=== PATIENT | female | born 1980 | race Caucasian/White ===

== ENCOUNTER 2022-08-05 10:03 | Outpatient (CLI) | payer MEDICAID, SELFPAY | END 2022-08-05 10:04 | disposition home or self-care (01) | PROVIDERS: PCP Family Medicine; Visit Provider Family Medicine | DX: L29.9 Pruritus, unspecified (principal); E78.5 Hyperlipidemia, unspecified | CPT/HCPCS: 80048; 82607; 84443; 85025; 86140 ==

== ENCOUNTER 2022-08-16 13:32 | Outpatient (CLI) | payer BC, SELFPAY ==
--- NOTE | 2022-08-16 13:45 | CRLHL7_ITS ---
For Patients: As a result of the Century Cures Act, medical imaging exams and procedure reports are released immediately into your electronic medical record. You may view this report before your referring provider. If you have questions, please contact your health care provider. Indication: Neck pain with right arm radiation. Technique: T2, T1 and STIR sagittal as well as gradient echo axial sequences were obtained. No IV contrast. Comparison: Cervical CT from [facility] dated 03/09/2017. Preoperative cervical MRI from [facility] dated 04/28/2015. Findings: Interbody fusion from C4-C7 where an anterior plate and screw device remains in place. There is also posterior element fixation hardware at the operated levels. Solid interbody bony bridging is present from C4-C7. The appearance of the surgical construct is unchanged from 03/09/2017. There is trace degenerative anterolisthesis at C7-T1, new from the 2018 CT. The overall degree of cervical lordosis remains within normal limits. No fracture or worrisome bone lesion identified. No high grade central canal stenosis. No spinal cord signal abnormalities are identified. The visualized spinal cord is normal in morphology, signal intensity, and position within the spinal canal. No gross paraspinal pathology is identified. Craniocervical junction and C1-C2: Unremarkable, with a patent foramen magnum. No change from 03/09/2017. C2-3: Moderate facet degenerative changes, progressed from 03/09/2017. Mild narrowing of the right foramen. C3-4: Moderate disc degeneration. Mild facet osteoarthritis. Mild interval disease progression. The foramina remain patent. C4-5 through C6-7: Intersegmental fusion, stable from 03/09/2017. The foramina remain patent. C7-T1: Moderately severe right and moderate left facet osteoarthritis. Slight degenerative anterolisthesis. Moderate disc degeneration. Moderate progression from 03/09/2017. The foramina remain patent. Impression: 1. At C7-T1 there is bilateral facet osteoarthritis, more pronounced and moderately severe on the right, with slight degenerative anterolisthesis. This has progressed from 03/09/2017. 2. At C3-4 there is moderate disc degeneration and mild facet osteoarthritis, mildly progressed. 3. Surgical fusion from C4-C7, appearance unchanged. 4. No central canal stenosis. No high-grade foraminal encroachment. No disc herniations are identified. Dictated by Augie Lott MD @ 08/18/2022 8:30:20 AM (Electronically Signed)
== END 2022-08-16 13:33 | disposition home or self-care (01) ==
LOC: MRI 13:33
PROVIDERS: PCP Family Medicine; Visit Provider Family Medicine
DX: M54.2 Cervicalgia (principal); M54.12 Radiculopathy, cervical region; M47.893 Other spondylosis, cervicothoracic region; M50.31 Other cervical disc degeneration, high cervical region
CPT/HCPCS: 72141

== ENCOUNTER 2022-10-18 16:01 | Outpatient (CLI) | payer BC, SELFPAY ==
--- NOTE | 2022-10-18 16:00 | CRLHL7_ITS ---
For Patients: As a result of the Century Cures Act, medical imaging exams and procedure reports are released immediately into your electronic medical record. You may view this report before your referring provider. If you have questions, please contact your health care provider. INDICATION: Chronic sinusitis. TECHNIQUE: High-resolution CT images were acquired through the paranasal sinuses multiplanar reconstructions. FINDINGS: Postoperative changes consists of bilateral maxillary antrostomies, uncinectomies and partial middle turbinectomies. Maxillary sinuses: On the left side there is a 14 mm x 9 mm retention cyst along the medial maxillary sinus wall there is a 3 mm or less mucosal thickening at the base of the antrum wide patency of the maxillary antrostomy. On the right side there is 5 mm or less mucosal thickening along the medial wall of the maxillary sinus antrostomy is patent. Ethmoid: Bilateral ethmoid air cells are clear. Frontal: A frontal air cells are a plastic. A remnant of the left inferior frontal recess is noted. Sphenoid: This there is a 3 mm or less mucosal thickening in the dominant right sphenoid air cell the sphenoethmoidal recesses are patent. Nasal fossa: Nasal septum is near midline. The posterior nasal fossa and the nasopharynx are unremarkable. IMPRESSION: 1. Postoperative changes with patent bilateral maxillary antrostomies. 2. Retention cyst at the medial wall of the left maxillary antrum and mild mucosal thickening at the base of the bilateral maxillary sinuses. 3. Clear ethmoid air cells. Aplastic frontal air cell. 4. Moderate mucosal thickening in the dominant right sphenoid air cell. Please note that all CT scans at this facility use dose modulation, iterative reconstruction, and/or weight-based dosing when appropriate to reduce radiation dose to as low as reasonably achievable. Dictated by Javi Girard MD @ 10/19/2022 9:24:25 AM (Electronically Signed)
== END 2022-10-18 16:02 | disposition home or self-care (01) ==
LOC: CT 16:02
PROVIDERS: PCP Family Medicine; Visit Provider Otolaryngology
DX: J32.9 Chronic sinusitis, unspecified (principal); J34.1 Cyst and mucocele of nose and nasal sinus; J32.0 Chronic maxillary sinusitis
CPT/HCPCS: 70486

== ENCOUNTER 2022-11-15 21:00 | Outpatient (CLI) | payer BC, SELFPAY ==
--- NOTE | 2022-11-23 12:06 | W.PM.SLEEP ---
Sleep Study Details Details Interpreting Provider: Coy Date of Sleep Study: 11/15/22 Sleep Study Details: STUDY TYPE:? Hospital-based ? BMI:? 27.5 ORDERING PROVIDER:Johnny Temple INDICATION:? Concerns about sleep apnea ? SLEEP SUMMARY:? Total sleep time 404.5 minutes, arousal index 11 RESPIRATORY SUMMARY:? Mean oxygen awake 97 asleep 95 minimum 89 AHI 12.3, RDI 16 Supine AHI 17.9, supine REM AHI 4.86 Nonsupine AHI is 7 nonsupine RDI 10.2 PERIODIC LIMB MOVEMENTS OF SLEEP:? None CARDIAC:? Awake 64, asleep 62. No arrhythmias noted IMPRESSION:? Mild to moderate obstructive sleep apnea with an AHI of 12.3 and an RDI of 16. There is definite supine position dependency but no REM dependency RECOMMENDATION: Treatment options include AutoSet CPAP pressure 4-17, dental appliance and/or airway expansion surgery.
== END 2022-11-15 21:01 | disposition home or self-care (01) ==
LOC: SLEEP 21:00
PROVIDERS: PCP Family Medicine; Visit Provider Otolaryngology
DX: G47.33 Obstructive sleep apnea (adult) (pediatric) (principal)
CPT/HCPCS: 95810

== ENCOUNTER 2022-12-17 10:18 | Day surgery (SDC) | payer BC, SELFPAY ==
[2022-12-17] VITALS (15 sets, daily range): BP systolic 122–148; BP diastolic 73–100; PULSE 70–95; RESP 14–16; TEMP 36.4–36.9; O2SAT 93–98; BMI 27.5
[2022-12-17] MEDS: LACTATED RINGERS 1000 ML 1,000 ML 100 ML IV (10:25)
[2022-12-17] MEDS: OXYMETAZOLINE 0.05% NASAL SPRAY 2 SPRAY NOSTRIL-B (10:36)
[2022-12-17 10:48] LABS: Ur HCG Qualitative* Negative (Negative)
[2022-12-17] MEDS: SODIUM CHLORIDE 0.9 % (FLUSH) 10 ML SYRINGE IVF (11:07)
[2022-12-17] MEDS: COCAINE HCL 4 % 4 ML SOLUTION NOSTRIL-B (12:08)
[2022-12-17] MEDS: BUPIVACAINE 0.5 %/EPI 1:200K 30 ML INJECTION (12:10)
[2022-12-17] MEDS: AYR SALINE NASAL GEL 1 APPLIC NOSTRIL-B (12:15)
[2022-12-17] MEDS: MUPIROCIN 1 GM PACKET 1 APPLIC TOPICAL (12:18)
--- NOTE | 2022-12-17 12:30 | P.ENTPROC_ITS ---
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 Postoperative diagnosis same Procedure endoscopic bilateral maxillary antrostomies with tissue removal, endoscopic right anterior ethmoidectomy, very conservative anterior submucous resection inferior turbinates Noted each image guidance was utilized and registration was 1.6 mm. After general endotracheal anesthesia was induced and the patient prepped and draped in usual fashion. The nose was decongested with cocaine pledgets and injected. 0 degree endoscope was used throughout the procedure. They left uncinate process was taken down and this natural opening connected to the pre- existing antrostomy. There was a large cyst in the medial wall the left maxillary sinus that I removed. On the right side the inferior 4th of the uncinate was taken down and the natural os connected to the pre-existing os. Small amount of polypoid tissue was removed from this region. The anterior ethmoid cells were opened and again a small amount of polypoid tissue was removed. Middle turbinate was simply crushed with the Ken forceps. A very conservative anterior submucous resection was performed of the right inferior turbinate. A stab incision was made with a 15 blade and a tunnel created with a [place] dissector. The patti bone was outfractured a Mukesh forceps used to remove a very small amount of tissue. Hemostasis was achieved with Coblation. The not cauterize posteriorly at all because the turbinate was already fairly small. This was repeated on the left side in identical fashion. Dissolvable gel pack as well as a half Merocel pack was placed in the middle meatus on each side. The patient procedure well was taken recovery in satisfactory condition. Blood loss was 25 mL. Surgeon: Chevy Mejia MD
--- NOTE | 2022-12-17 12:43 | W.ANESCHARGE ---
Anesthesia Charges Start Date/Time Anesthesia Start Date: 12/17/22 Anesthesia Start Time: 11:49 Stop Date/Time Anesthesia Stop Date: 12/17/22 Anesthesia Stop Time: 12:39
--- NOTE | 2022-12-17 12:44 | W.ANESCHARGE ---
Anesthesia Charges Start Date/Time Anesthesia Start Date: 12/17/22 Anesthesia Start Time: 11:49 Stop Date/Time Anesthesia Stop Date: 12/17/22 Anesthesia Stop Time: 12:39
[2022-12-17] MEDS: fentaNYL 100 MCG/2 ML inj 50 MCG IVP ×2 (12:50→13:08)
[2022-12-17] MEDS: HYDROmorphone 0.5 mg/0.5 ml inj IVP (12:58)
[2022-12-17] MEDS: IBUPROFEN 200 MG TABLET PO (13:54)
[2022-12-17] MEDS: OXYCODONE 5 MG TABLET PO (14:15)
[2022-12-17] MEDS: ACETAMINOPHEN 325 MG TABLET PO (14:15)
--- NOTE | 2022-12-17 15:12 | SUR.PHASEII ---
PATIENT TEARFUL ONCE HEARING INSURANCE WOULD NOT COVER NARCOTIC PRESCRIPTION BY CELL PHONE CALL TO PATIENT FROM PHARMACY. RN CALLED PHARMACY TO ASK WHAT SHE CAN DO FOR PAIN POST-OP. RN CALLED DR. JANE FOR OTHER OPTIONS. RN CALLED PHARMACY AGAIN TO TRY OTHER MEDICATION OPTIONS FROM DR. JANE WITH NO RESULTS. DR. JANE ORDERED PATIENT TO CONTINUE HER ROUTINE PRESCRIPTION OF SUBOXONE AND IBUPROFEN FOR PAIN RELIEF POST-OP. PATIENT VERBALIZED UNDERSTANDING POST-OP INSTRUCTIONS, PATIENT VERBALIZED READINESS TO BE DISCHARGED. RN DISCHARGED PATIENT, HOME WITH FRIEND.
== END 2022-12-17 15:15 | disposition home or self-care (01) ==
LOC: OR 10:19
PROVIDERS: PCP Family Medicine; Visit Provider Otolaryngology
PROC: (CPT 31231; principal; 2022-12-17 11:30)
DX: J32.0 Chronic maxillary sinusitis (principal); J32.2 Chronic ethmoidal sinusitis; J34.3 Hypertrophy of nasal turbinates; R51.9 Headache, unspecified
CPT/HCPCS: 31267; 31254; 30140; 00160; 81025; 88305; 88311; A9270; J0330; J1100; J1170; J2405; J2704; J3010; J3490; J7120

== ENCOUNTER 2023-04-12 08:37 | Outpatient (CLI) | payer BC, SELFPAY | END 2023-04-12 08:38 | disposition home or self-care (01) | LOC: INJ CL 08:38 | PROVIDERS: PCP Family Medicine; Visit Provider Family Medicine | DX: M51.36 Other intervertebral disc degeneration, lumbar region (principal); M54.16 Radiculopathy, lumbar region | CPT/HCPCS: 62323; J0702; Q9966 ==

== ENCOUNTER 2023-05-10 09:01 | Outpatient (CLI) | payer BC, SELFPAY | END 2023-05-10 09:02 | disposition home or self-care (01) | LOC: INJ CL 09:02 | PROVIDERS: PCP Family Medicine; Visit Provider Family Medicine | DX: M51.36 Other intervertebral disc degeneration, lumbar region (principal); M54.16 Radiculopathy, lumbar region | CPT/HCPCS: 64483; J1100; Q9966 ==

== ENCOUNTER 2023-06-27 12:42 | Outpatient (CLI) | payer BC, SELFPAY ==
--- OUTSIDE RECORDS SUMMARY | 2023-06-27 12:45 | XMS_ITS | Referral Summary ---
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 Last update 07/12/08.[employer] Encounters Date Type Department Care Team Description 06/07/2023 Travel 05/10/2023 Travel 04/12/2023 Travel from Last 3 Months Allergies Active Allergy Reactions Criticality Noted Date Comments Amoxicillin Rash 10/06/2022 Eszopiclone Other (see comments) 10/06/2022 Levofloxacin Unknown 10/06/2022 Quetiapine Other (see comments) 10/06/2022 Medications * Be aware that medications may not be up to date as of this document. Always verify current medications with patient. Medication Sig Dispensed Refills Start Date End Date Status traZODone (DESYREL) 1 split tablet (0.5 x 50 mg) oral TABS Active venlafaxine (EFFEXOR XR) 150 mg oral capsule 24 H Take 1 capsule (150 mg) by mouth daily. 08/17/2022 Active tiZANidine (ZANAFLEX) 4 mg oral TABS Active pantoprazole (PROTONIX) 40 mg oral tablet Active lamoTRIgine (LAMICTAL) 200 mg oral tablet Active GABApentin (NEURONTIN) 300 mg oral capsule Take 3 capsules (900 mg) by mouth 3 times daily. 10/01/2022 Active clonazePAM (KLONOPIN) 0.5 mg oral TABS Take 1 tablet (0.5 mg) by mouth daily as needed. 09/20/2022 Active busPIRone (BUSPAR) 10 mg oral tablet Take 2 tablets (20 mg) by mouth 3 times daily. 10/04/2022 Active albuterol (VENTOLIN HFA;PROVENTIL HFA;PROAIR) 108 (90 BASE) mcg/act inhalation inhaler SMARTSI Puff(s) By Mouth Every 4-6 Hours PRN 04/17/2022 Active PREVIDENT 5000 SENSITIVE 1.1-5 % dental gel SMARTSIG:By Mouth 03/28/2023 Active etonogestrel-eth inyl estradiol (NUVARING) 0.12-0.015 MG/24HR vaginal ring SMARTSIG:Vagi nal 01/12/2023 Active famotidine (PEPCID) 40 mg oral TABS Take 1 tablet (40 mg) by mouth daily. 04/16/2023 Active buprenorphine-na loxone (SUBOXONE) 2-0.5 mg sublingual sublingual tabletIndication s:Opioid dependence in remission (CMS/HHS),Chroni c pain syndrome Dissolve 1 tablet under tongue daily as needed (severe chronic pain flare). 20 tablet 06/07/2023 4 Active buprenorphine-na loxone (SUBOXONE) 2-0.5 mg sublingual sublingual tabletIndication s:Opioid dependence in remission (CMS/HHS),Chroni c pain syndrome Dissolve 1 tablet under tongue daily as needed (severe chronic pain flare). 8 tablet 05/24/2023 4 Discontinued(Reor morenita) guanFACINE (TENEX) 1 mg oral TABSIndications: Chronic pain syndrome,PRIMO (generalized anxiety disorder) Take 0.5-1 tablets (0.5-1 mg) by mouth daily as needed (anxiety and pain flare). 6 tablet 05/24/2023 4 Discontinued buprenorphine-na loxone (SUBOXONE) 2-0.5 mg sublingual sublingual tabletIndication s:Opioid dependence in remission (CMS/HHS),Chroni c pain syndrome Dissolve 1 tablet under tongue daily as needed (severe chronic pain flare). 5 tablet 06/02/2023 4 Discontinued(Reor morenita) Hospital, Clinic, or Other Facility Administered Medication Ordered Dose Route Frequency Start Date End Date Status buprenorphine ER (SUBLOCADE) 100 mg/0.5 mL injection 100 mgIndications:Opioid dependence in remission (CMS/HHS) 100 mg subcutaneous ONE TIME 06/07/2023 06/07/2023 End ed Active Problems Problem Noted Date Diagnosed Date Anxiety disorder 02/22/2020 Opioid use disorder 02/22/2020 Overview: correction remission with buprenorphine Social History Tobacco Use Types Packs/Day Years Used Date Smoking Tobacco: Every Day Cigarettes Smokeless Tobacco: Never Tobacco Cessation:Ready to Q uit: Not Asked; Counseling Given: Not Answered Sex and Gender Information Value Date Recorded Sex Assigned at Female 02/22/2020 2:11 PM [employer] Gender Identity Female 02/22/2020 2:11 PM [employer] Sexual Orientation Not on file Last Filed Vital Signs Vital Sign Reading Time Taken Comments Blood Pressure - - Pulse 95 06/07/2023 3:48 PM CDT Temperature - - Respiratory Rate 18 06/07/2023 3:48 PM CDT Oxygen Saturation 95% 06/07/2023 3:48 PM CDT Inhaled Oxygen Concentration - - Weight - - Height - - Body Mass Index - - Plan of Treatment Not on file Procedures Procedure Name Priority Date/Time Associated Diagnosis Comments LAB PAIN CLINIC URINE DRUG SCREEN Routine 06/07/2023 4:50 PM CDT Opioid dependence in remission ([facility]) LAB PAIN CLINIC URINE DRUG SCREEN Routine 05/10/2023 5:09 PM CDT Opioid dependence in remission ([facility]) LAB PAIN CLINIC URINE DRUG SCREEN Routine 04/12/2023 3:00 PM [employer] Opioid dependence in remission ([facility]) PAP TEST Routine 06/18/2021 11:10 AM CDT PANEL LIPID Routine 05/23/2017 3:10 PM CDT from Last 3 Months or Most Recently Relevant to Health Maintenance Results * (ABNORMAL) PAIN CLINIC URINE DRUG SCREEN (06/07/2023 4:50 PM CDT) Only the most recent of3 resultswithin the time period is included. Amphetamine Ur NEG <=500 ng/mL [facility] Benzodiazipine NEG <=100 ng/mL [facility] Buprenorphine Ur POS(A) <=5 ng/mL [facility] Carisoprodol, Urine NEG <=100 ng/mL [facility] Cocaine Metab Ur NEG <=300 ng/mL [facility] Ethylglucuronide Urine NEG <=250 ng/mL [facility] Fentanyl, Urine NEG <=4 ng/mL [facility] Methadone Metabolite Urine NEG <=300 ng/mL [facility] Opiate Ur NEG <=300 ng/mL [facility] Oxycodone Ur NEG <=100 ng/mL [facility] THC Ur NEG <=50 ng/mL [facility] Tramadol, Urine NEG <=200 ng/mL [facility] Creat Urine 95 >=20 mg/dL [facility] PH Urine 5.9 5.0 - 7.0 [facility] Specific [place] 1.017 1.003 - 1.030 [facility] Hydrocodone, Ur NEG <=300 ng/mL [facility] Urine 06/07/2023 4:50 PM CDT 06/07/2023 4:50 PM CDT Gerardo Alonzo MD LABORATORY [facility] [address] [id number] from Last 3 Months or Most Recently Relevant to Health Maintenance [facility] S[facility] [address] [place] [address]
--- OUTSIDE RECORDS SUMMARY | 2023-06-27 12:45 | XMS_ITS | Clinical Summary ---
Author Name Unknown Organization [facility] Address [place], [place] [address] Care Team Providers Care Personal Care Worker Name Role Phone Ezio Fraga MD Primary Care Provider Allergies Active Allergy Reactions Criticality Noted Date Comments Amoxicillin Rash,Other - Describe In Comment Field Medium 09/27/2014 Eszopiclone Itching,Other - Describe In Comment Field Medium 09/27/2014 Levofloxacin Other - Describe In Comment Field High 09/27/2014 Tendonitis Quetiapine Other - Describe In Comment Field 10/06/2022 Quetiapine Fumarate Other - Describe In Comment Field Medium 09/27/2014 Per Psychiatrist no prescribing. Medications Medication Sig Dispensed Refills Start Date End Date Status sennosides-docusat e, 8.6-50 mg, (SENOKOT S) 8.6-50 mg tabletIndications: Constipation due to opioid therapy Take 2 tablets by mouth 2 times daily. Take this while taking the Dilaudid (or other narcotic pain meds) to avoid constipation 100 tablet 7 Active magnesium 250 mg tab Take 1 tablet by mouth once daily. 0 8 Active medication order composer Tumeric Curcumin 0 8 Active sodium bicarb-sodium chloride (NEILMED SINUS RINSE)Indications: Chronic maxillary sinusitis once daily if needed for Nasal Congestion. Rinse both sides. Follow mixing instructions. Use daily starting the day after surgery. 1 Bottle 8 Active COVID-19 antigen test (Flowflex Covid-19 AG Home Test) kit Use as directed on packaging. 4 Kit 2 Active varenicline (Chantix) 1 mg tabletIndications: Tobacco abuse Take 1 tablet (1 mg) by mouth once daily with a meal. 56 Tablet 1 2 Active fluticasone (50 mcg per actuation) nasal solution (FLONASE)Indicatio ns:Acute recurrent maxillary sinusitis Inhale 1 [place] into both nostrils 2 times daily. 48 g 3 2 Active Additional Information Patient not taking.Reported on 05/05/2023 polyethylene glycoL (Miralax) 17 gram/scoop powder Mix 1 scoop (17 g) in liquid then take by mouth once daily if needed for Constipation. 0 3 Active budesonide (PULMiCORT) 1 mg/2 mL neb suspensionIndicati ons:Chronic maxillary sinusitis,Nasal congestion Put one respule in sinus rinse kit and irrigate twice daily 120 mL 3 Active Additional Information Patient not taking.Reported on 05/05/2023 albuterol HFA (PRO-AIR; VENTOLIN; PROVENTIL) 90 mcg/actuation inhaler INHALE 2 PUFFS BY MOUTH EVERY 4 TO 6 HOURS NEEDED FOR SHORTNESS OF BREATH/WHEEZING 3 Active BIOTIN ORAL Take by mouth. Active cyanocobalamin, vitamin B-12, (VITAMIN B-12 ORAL) Take by mouth. Active buprenorphine-nalo xone, 8 mg-2 mg, (SUBOXONE) (8-2 mg/tablet) sublingual tabletIndications: Neck pain, chronic Patient taking 2-1/2 tablets/day 30 Tablet 3 Active etonogestreL-ethin yl estradioL (NuvaRing) vaginal ringIndications:Us es contraception INSERT 1 RING VAGINALLY AND LEAVE IN PLACE FOR 3 CONSECUTIVE WEEKS THEN REMOVE FOR 1 WEEK. REPEAT WITH NEW RING (DOES NOT ALWAYS SKIP WEEK) 3 Each 2 3 Active busPIRone (BUSPAR) 10 mg tabletIndications: Anxiety disorder, unspecified type Take 2 Tablets (20 mg) by mouth three times daily. 540 Tablet 1 3 Active lamoTRIgine (LAMICTAL) 150 mg tabletIndications: Anxiety disorder, unspecified type,Recurrent major depressive disorder, in partial remission (HC) Take 2 Tablets (300 mg) by mouth at bedtime. 180 Tablet 1 3 Active traZODone (DESYREL) 150 mg tabletIndications: Psychophysiologica l insomnia Take 0.5-1 Tablets (75-150 mg) by mouth at bedtime. 90 Tablet 1 3 Active venlafaxine (EFFEXOR XR) 150 mg Extended-Release capsuleIndications :Anxiety disorder, unspecified type,Recurrent major depressive disorder, in partial remission (HC) Take 1 Capsule (150 mg) by mouth once daily with evening meal. 90 Capsule 1 3 Active famotidine (PEPCID) 40 mg tabletIndications: Gastroesophageal reflux disease without esophagitis TAKE ONE TABLET(40MG) BY MOUTH ONCE DAILY 90 Tablet 2 3 Active clonazePAM (KLONOPIN) 0.5 mg tabletIndications: Anxiety disorder, unspecified type TAKE 1/2 TABLET(0.25MG) BY MOUTH 2 TIMES DAILY IF NEEDED FOR ANXIETY OR AGITATION 30 Tablet 2 4 Active celecoxib (CELEBREX) 200 mg capsuleIndications :DDD (degenerative disc disease), lumbar Take 1 Capsule (200 mg) by mouth two times daily with meals. 60 Capsule 2 4 Active pantoprazole (PROTONIX) 40 mg delayed-release tabletIndications: Chronic reflux esophagitis Take 1 Tablet (40 mg) by mouth once daily. 90 Tablet 4 Active tiZANidine (ZANAFLEX) 4 mg tabletIndications: Cervical stenosis of spinal canal TAKE ONE TABLET (4 MG) BY MOUTH EVERY 6 HOURS IF NEEDED FOR MUSCLE SPASM. 60 Tablet 4 Active gabapentin (NEURONTIN) 300 mg capsuleIndications :Neck pain, chronic TAKE 2 CAPSULES (600 MG) BY MOUTH TWO TIMES DAILY. 360 Capsule 1 4 Active tiZANidine (ZANAFLEX) 4 mg tabletIndications: Cervical stenosis of spinal canal Take 1 Tablet (4 mg) by mouth every 6 hours if needed for Muscle Spasm. 180 Tablet 3 06/03/19 24 Discontinued gabapentin (NEURONTIN) 300 mg capsuleIndications :Neck pain, chronic Take 2 Capsules (600 mg) by mouth two times daily. 360 Capsule 4 06/03/19 24 Discontinued Active Problems Problem Noted Date Diagnosed Date Trigger finger of left thumb 01/03/2023 Abdominal bloating 11/30/2022 Pap smear for cervical cancer screening 06/08/19 Overview: 06/2021 NIL/HPV neg. Plan: Pap and HPV in 5 years. Controlled substance agreement signed 12/02/2020 Overview: Signed 10-29-2021 Kim Beaver MD-[facility] Psychiatry Moderate episode of recurrent major depressive d isorder 07/25/2018 Insomnia, idiopathic 07/25/2018 Pain management contract terminated 10/17/2017 Overview: Patient pain managed with Suboxone outside of this clinic, does require approval for any other controlled drugs due to being on restricted access program Pain disorder associated wit h psychological and physical factors 10/11/2017 Chronic maxillary sinusitis 10/06/2017 Chronic pain syndrome 03/17/2017 Chronic, continuous use of opioids 03/17/2017 Pain medication agreement 03/01/2016 Overview: toxasure 02/23 Chronic pain disorder 02/27/2016 Overview: CSA 07/19/2016 Compliance UA 02/27/2016 Cervical stenosis (uterine cervix) 12/24/2014 Overview: S/P ACDF C4-C7 Dr. Orozco Neck pain 11/26/2014 Constipation due to opioid therapy 11/26/2014 Hyperlipidemia 11/26/2014 Gastroesophageal reflux disease without esophagi tis 11/26/2014 Chronic pain due to trauma 11/26/2014 Mild episode of recurrent major depressive disor morenita 02/18/2014 Neck pain Resolved Problems Problem Noted Date Diagnosed Date Resolved Date Anxiety disorder 10/11/2017 08/01/2020 Chemical dependency 05/10/2017 06/19/19 22 Insomnia 11/26/2014 08/01/2020 Primary insomnia 09/17/2014 10/09/2014 Encounters Date Type Department Care Team Description 06/22/2023 Hospital Encounter [facility] [address] [place] [address] Mario Funes MD 06/02/2023 Refill [facility] [address] [place] [address] Ezio Fraga MD Refill Request (Tizanidine, Gabapentin) 05/30/2023 Medical Messaging [facility] [address] [place] [address] Robby Mayen MD Follow up from last injection 05/10/2023 9:20 AM CDT Office Visit [facility] [address] [place] [address] Robby Mayen MD Procedure (Right L4-5 TFESI) 05/10/2023 Refill [facility] [address] [place] [address] Ezio Fraga MD Refill Request (Pantoprazole) 05/05/2023 2:00 PM CDT Office Visit [facility] [address] [place] [address] Robby Mayen MD Musculoskeletal Problem (Follow-up Epidural Steroid Injection on 04/12/2023/Patient states she doesn't feel the injection has helped at all. /) 05/05/2023 Telephone [facility] [address] [place] [address] Robby Mayen MD Error-please disregard 05/05/2023 Travel 04/12/2023 9:00 AM VIOLIN MAKER HAND Office Visit [facility] [address] [place] [address] Robby Mayen MD Procedure (L3-4 ILESI) 04/12/2023 Orders Only [facility] Scanner 1 scan: (1-Ord) [facility], L4-5 INTERLAMINAR EPIDURAL STEROID INJ UNDER FLUOROSCOPIC GUIDANCE, 04/12/2023 04/04/2023 Refill [facility] [address] [place] [address] Kim Fierro MD Refill Request (Clonazepam) from Last 3 Months Immunizations Name Administration Dates Next Due COVID-19 Vaccine Spikevax (M oderna 50mcg/0.5mL) 12YO+ 8130-1620 Formula PF 11/24/2022 COVID-19 vaccine ([email or web address].com-Bio NTech 30mcg/0.3mL) PF, MDV 03/07/2020,02/15/2020 DTaP 03/23/2007 Hepatitis B (Adult) 05/13/2005,11/13/2003 Hepatitis B, Unspecified 05/13/2005,11/13/2003 Human Papilloma Virus Vaccine 04/02/2008, 008 Human Papilloma Virus Vaccin e, Unspecified 04/02/2008,11/27/2007 Influenza Virus, Unspecified 11/19/2014, 11/04/2013,11/18/2008,2008,12/22/2007,11/13/2003,11/13/2002 Influenza, IIV3 (Age >=3 years) 12/01/19 16,11/19/2014,11/04/2013,2012,10/30/2010,11/18/2008,11/13/2003,1 Influenza, IIV4 11/24/2022,,11/20/2020,2019,11/23/2018,11/22/2017,01/18/2017,1 ,11/19/2014 Pneumococcal Conj 20-valent (Prevnar 20) 04/26/2022 Td, Preservative Free (age > = 7 Years) 04/26/2022 Tdap 04/27/2022,03/23/2007 Tetanus Toxoid 12/22/2007 Family History Medical History Relation Name Comments Anesthesia Problem No Family History Clotting disorder No Family History Relation Name Status Comments Father Alive Mother Alive Social History Tobacco Use Types Packs/Day Years Used Date Smoking Tobacco: Some Days Cigarettes Last attempted to quit: 11/07/2015 Passive Smoke Exposure: Past Smokeless Tobacco: Never Tobacco Cessation:Ready to Q uit: No; Counseling Given: Yes Comments:not taking Chantix 03/12/2022 Passive Exposure Comments:parents smoked as a child Alcohol Use Standard Drinks/Week Comments Never 0 (1 standard drink = 0.6 oz pur e alcohol) PHQ-2 Answer Date Recorded PHQ-2 TOTAL SCORE 4 01/12/2023 Social Connections Answer Date Recorded Frequency of Communication with Friends and Fami ly 0 11/15/2022 Financial Resource Strain Answer Date R ecorded Difficulty of Paying Living Expenses 3 11/15/2022 Difficulty of Paying Living Expenses Not on file 11/15/2022 Food Insecurity Answer Date Recorded Worried About Running Out of Food in the Last Ye ar 1 11/15/2022 Transportation Needs Answer Date Record ed Lack of Transportation (Medical) 1 11/15/2022 Housing Stability Answer Date Recorded Unable to Pay for Housing in the Last Year 1 11/15/2022 Sex and Gender Information Value Date Recorded Sex Assigned at Not on file Gender Identity Not on file Sexual Orientation Not on file Obstetrics History Last Filed Vital Signs Vital Sign Reading Time Taken Comments Blood Pressure 129/87 05/05/2023 2:05 PM CDT Pulse 94 05/05/2023 2:05 PM CDT Temperature 36.8 ??C (98.2 ??F) 03/03/2023 1:14 PM CS T Respiratory Rate 16 12/10/2022 11:04 AM CDT Oxygen Saturation 99% 05/05/2023 2:05 PM CDT Inhaled Oxygen Concentration - - Weight 83.3 kg (183 lb 9.6 oz) 05/05/2023 2:05 P M CDT Height 165.1 cm (5' 5) 12/10/2022 11:04 AM CDT Body Mass Index 30.55 12/10/2022 11:04 AM CDT Plan of Treatment Upcoming Encounters Date Type Department Care Team (Late st Contact Info) Description 07/11/2023 3:00 PM CDT Office Visit [facility] [place] [address] [facility] [address] [place] [address] Quang Maria PA [address] [facility] [address] [place] [address] 07/13/2023 10:15 AM CDT Office Visit [facility] [address] [place] [address] Kim Fierro MD [address] [place] [address] 08/26/2023 1:45 PM CDT Office Visit [facility] [address] [place] [address] Mario Funes MD [address] [facility] 1 [place] [address] Health Maintenance Due Date Last Done Comments Influenza for age 9-49 10/09/2023 3, 10/22/2021, 11/20/2020, Additional history exists BMI (ht and wt on same day) for age 18+ 12/11/2023 12/10/2022, 04/26/2022, 03/26/2022, Additional history exists Depression screening for age 12+ 01/13/2024 01/12/2023, 11/08/2022, 11/08/2022, Additional history exists Pap test for age 21-65 06/18/2026 , 06/18/2021, 02/09/2016 Tetanus booster 04/27/2032 04/27/2022, 04/08, 03/23/2007 Pneumococcal series for age 6-64 Completed 04/27/19 Tdap Completed 04/27/2022, 03/23/2007 HIV for age 15-65 Completed 04/30/2022 Hepatitis C screening for ag e 18-79 Completed 04/30/2022 COVID-19 vaccine series Completed 11/25/19, 01/09/2021, 03/07/2020, Additional history exists Medical Devices Implanted Type Area Editor Greeting Card Device Identifier Shelf Expiration Date Model / Serial / Lot Set Screw Cerv Ant 1.8mm Cslp Titnm - [id number] Implanted:Qty: 8 on 12/24/2014 by Toribio Orozco MD at [facility] Spine Implants N/A: Spine J And J Depuy Spine 497.78# / / Cable Lmbr Atlasral Crimp Titnm - [id number] Implanted:Qty: 1 on 06/18/2016 by Toribio Orozco MD at [facility] Spine Implants Spine Medtronic Spine/Ortho 04/12/2024 826-211# / / [id number] Cable Lmbr Chester Sgl W/ Integral Crimp Titnm - [id number] Implanted:Qty: 1 on 06/18/2016 by Toribio Orozco MD at [facility] Spine Implants Spine Medtronic Spine/Ortho 08/19/2023 826-213# / / [id number] 15x12.5x8mm Mtf Spacer Baltazar/Canclls [[id number]] Implanted:Qty: 1 on 12/24/2014 by Toribio Orozco MD at [facility] Explanted:at [facility] (Quantity not on file) N/A: Spine Musculoskeletal Transplant 10/10/2018 [id number]# / [id number] / [id number] 1024bone 15x12.5x8mm Mtf Spacer Baltazar/Canclls [[id number]] Implanted:Qty: 1 on 12/24/2014 by Toribio Orozco MD at [facility] Explanted:at [facility] (Quantity not on file) N/A: Spine Musculoskeletal Transplant 10/10/2018 [id number]# / [id number] / [id number] 15x12.5x8mm Mtf Spacer Baltazar/Canclls [[id number]] Implanted:Qty: 1 on 12/24/2014 by Toribio Orozco MD at [facility] Explanted:at [facility] (Quantity not on file) N/A: Spine Musculoskeletal Transplant 07/19/2018 [id number]# / [id number] / Screw Cerv Ant 4x14mm Cslp Cortical Slf Tpping Expansion Hea - [id number] Implanted:Qty: 8 on 12/24/2014 by Toribio Orozco MD at [facility] N/A: Spine J And J Depuy Spine 487.044# / / Plate Cerv 3lvl 54mm Cslp Variable Titnm - [id number] Implanted:Qty: 1 on 12/24/2014 by Toribio Orozco MD at [facility] N/A: Spine J And J Depuy Spine 450.174# / / [id number] 1120bone 30cc Mtf Chips Canclls Pouch [[id number]] Implanted:Qty: 1 on 06/18/2016 by Toribio Orozco MD at [facility] Explanted:at [facility] (Quantity not on file) Spine Musculoskeletal Transplant 08/26/2017 [id number]# / [id number] / Screw Cerv Post 3.5x10mm Synapse Va Canncls Titnm - [id number] Implanted:Qty: 3 on 06/18/[address] [facility] Spine J And J Depuy Spine 04.614.0 10# / / Set Screw Cerv Synapse - [id number] Implanted:Qty: 3 on 06/18/[address] [facility] Spine J And J Depuy Spine 04.614.5 08# / / Jc Cerv 50mmx3.5 Synapse Cvd Titnm - [id number] Implanted:Qty: 1 on 06/18/[address] [facility] Spine J And J Depuy Spine 04.614.7 50# / / Procedures Procedure Name Priority Date/Time Associated Diagnosis Comments AMB EPIDURAL STEROID INJECTION Routine 05/10/2023 12:00 AM CDT DDD (degenerative disc disease), lumbar Lumbar radiculopathy Numbness in feet Bulging of lumbar intervertebral disc AMB EPIDURAL STEROID INJECTION Routine 04/12/2023 8:00 AM VIOLIN MAKER HAND DDD (degenerative disc disease), lumbar Lumbar radiculopathy SCAN-OPERATIVE/PRO CEDURE REPORT 04/12/2023 12:00 AM VIOLIN MAKER HAND LC HIV-1/O/2, 4TH GENERATION Routine 04/30/2022 11:46 AM CDT Screening for HIV (human immunodeficiency virus) LC HCV ANTIBODY RFX TO QUANT PCR Routine 04/30/2022 11:46 AM CDT Need for hepatitis C screening test COMMUNICATION CLERK THIN PREP PAP SCREEN IMAGED Routine 06/18/2021 11:10 AM CDT Pap smear for cervical cancer screening from Last 3 Months or Most Recently Relevant to Health Maintenance Results * AMB EPIDURAL STEROID INJECTION (05/10/2023 12:00 AM CDT) Robby Mayen MD NEUROLOGY ORD * SCAN-OPERATIVE/PROCEDURE REPORT (04/12/2023 12:00 AM VIOLIN MAKER HAND) Scanner OTHER * LC HCV ANTIBODY RFX TO QUANT PCR (04/30/2022 11:46 AM CDT) Pathologist [facility] HCV Ab Non Reactive Non Reactive 05/04/2022 11:[address] [facility] ESOTERIC TESTING (CET) Blood BLOOD SPECIMEN / Unknown Venipuncture / Unknown 04/30/2022 11:46 AM CDT 04/30/2022 11:49 AM CDT Narrative [facility] ESOTERIC TESTING (CET) - 05/04/2022 11:09 AM CDT Performed at: ??01 - [facility] [employer] [place], [place] ??[id number] Fixed Wing Pilot: Derick Phillips MD, Phone: ??[phone] Nickie Hall MD LABORATORY [facility] (CET) [address] [place] [address], * LC HIV-1/O/2, 4TH GENERATION (04/30/2022 11:46 AM CDT) Pathologist [facility] HIV Scr 4th Gen Non Reactive Non Reactive 05/04/2022 9:10 AM CDT [facility] ([facility]ET) Comment: HIV Negative HIV-1/HIV-2 antibodies and HIV-1 p24 antigen were NOT detected. There is no laboratory evidence of HIV infection. Blood BLOOD SPECIMEN / Unknown Venipuncture / Unknown 04/30/2022 11:46 AM CDT 04/30/2022 11:49 AM CDT Narrative [facility] ([facility]ET) - 05/04/2022 9:10 AM CDT Performed at: ??01 [facility] [employer] [place], [place] ??[id number] Fixed Wing Pilot: Derick Phillips MD, Phone: ??[phone] Nickie Hall MD LABORATORY [facility] ([facility]) [address] [place] [address], [place] * COMMUNICATION CLERK THIN PREP PAP SCREEN IMAGED (06/18/2021 11:10 AM CDT) Case Report Gynecologic Cytology Report ? Case: [id number] ? Authorizing Provider: ??Ezio Fraga, ?? Collected: ? 06/18/2021 1110 ? MD ? Ordering Location: ? [facility] ?Received: ?06/18/2021 1239 ? Clinic ? First Screen: ?[place], Xon Dennis ? Specimen: ?COMMUNICATION CLERK ThinPrep Vial Screening, Cervical/Vaginal ? 07/02/2021 12:12 PM CDT [facility]- ENTRAL LABORATORY INTERPRETATION/ RESULT NEGATIVE FOR INTRAEPITHELIAL LESION OR MALIGNANCY (NIL) (none) 07/02/2021 12:12 PM CDT [facility] ENTRAL LABORATORY IMEN ADEQUACY Satisfactory for evaluation No endocervical component seen 07/02/2021 12:12 PM CDT [facility] ENTRAL LABORATORY HPV REQUEST HPV if ASCUS 07/02/2021 12:12 PM CDT [facility] ENTRAL LABORATORY Date of LMP unknown 07/02/2021 12:12 PM CDT [facility] ENTRAL LABORATORY Last Pap Date 02/09/16 07/02/2021 12:12 PM CDT [facility] LABORATORY-C ENTRAL LABORATORY Last Pap Result NIL 12:12 PM CDT [facility] ENTRAL LABORATORY Abnormal Pap or [place] Bx in last 5 years No 07/02/2021 12:12 PM CDT [facility] ENTRAL LABORATORY Menstrual Status Hormonally Suppressed 07/02/2021 12:12 PM CDT [facility] ENTRAL LABORATORY [place] Bx Done Today No 07/02/2021 12:12 PM CDT [facility] ENTRAL LABORATORY Additional Information None given 07/02/2021 12:12 PM CDT [facility] ENTRAL LABORATORY Comment: Cytology is screened at [facility], Central Laboratory - [address], [place] [address] and [facility] Laboratory - [address], [place] [address] and Laboratory - [address] [place] [address] Interpreted at [facility] Central Laboratory - [address], [place] [address] Automated Review Successful 07/02/2021 12:12 PM CDT [facility] EN[facility]AL LABORATORY Comment:Specimen processed s uccessfully by automated inside trucker device, [employer], [employer] Note The pap test is a screening technique, not a diagnostic procedure. It is used primarily to screen for squamous cancers and precursor lesions. Published studies have shown that it is subject to both false negative and false positive results. The pap test should not be used as the sole means to diagnose or exclude pre-malignant and malignant lesions. 07/02/2021 12:12 PM CDT [facility] ENTRAL LABORATORY Other (Cervical/Vagina l) Non-Blood / Unknown 06/18/2021 11:10 AM CDT 06/18/2021 12:39 PM CDT Ezio Fraga MD PATHOLOGY/CYTO LOGY [facility] [employer] LABORATORY-CENTRAL LABORATORY [address] [place] [address], from Last 3 Months or Most Recently Relevant to Health Maintenance Advance Directives * Full Code (Latest Code Status on File) Date Activated Date Inactivated Comments 11/30/2022 9:46 AM 11/30/2022 2:34 PM Question Answer Comments Code Status Discussion: Discussed * Full Code Date Activated Date Inactivated Comments 06/18/2016 3:53 PM 06/20/2016 9:03 PM * Full Code Date Activated Date Inactivated Comments 06/18/2016 5:57 AM 06/18/2016 3:45 PM * Full Code Date Activated Date Inactivated Comments 12/24/2014 6:14 PM 12/26/2014 4:04 PM * Full Code Date Activated Date Inactivated Comments 12/24/2014 11:11 AM 12/24/2014 6:14 PM Care Teams Personal Care Worker Relationship Specialty Start Date End Date Ezio Fraga MD [address] [place] [address] PCP - General Family Practice 11/15/22
--- OUTSIDE RECORDS SUMMARY | 2023-06-27 12:45 | XMS_ITS | Encounter Summary ---
Author Name Unknown Organization [facility] Address [address] [place] [phone] Phone Care Team Providers Care Auditor Internal Name Role Phone Unavailable Primary Care Provider Unavailabl e Encounter Details Date Type Department Care Team (Latest Contact Info) Description 04/12/2023 Travel Social History Tobacco Use Types Packs/Day Years Used Date Smoking Tobacco: Every Day Cigarettes Smokeless Tobacco: Never Sex and Gender Information Value Date Recorded Sex Assigned at Female 02/22/2020 2:11 PM LINE BUILDER Gender Identity Female 02/22/2020 2:11 PM LINE BUILDER Sexual Orientation Not on file COVID-19 Exposure Response Date Recorded In the last 10 days, have yo u been in contact with someone who was confirmed or suspected to have Coronavirus/COVID-19? No / Unsure 03/14/2023 1:55 PM LINE BUILDER documented as of this encounter Plan of Treatment Not on file documented as of this encounter Visit Diagnoses Not on filedocumented in this encounter
--- OUTSIDE RECORDS SUMMARY | 2023-06-27 12:45 | XMS_ITS | Encounter Summary ---
Author Name Unknown Organization [facility] Address [address] [place] [id number] Phone Care Team Providers Care Digital Research Analyst Name Role Phone Unavailable Primary Care Provider Unavailabl e Encounter Details Date Type Department Care Team (Latest Contact Info) Description 05/10/2023 Travel Social History Tobacco Use Types Packs/Day Years Used Date Smoking Tobacco: Every Day Cigarettes Smokeless Tobacco: Never Sex and Gender Information Value Date Recorded Sex Assigned at Female 02/22/2020 2:11 PM ADAPTED PHYSICAL EDUCATION SPECIALIST Gender Identity Female 02/22/2020 2:11 PM ADAPTED PHYSICAL EDUCATION SPECIALIST Sexual Orientation Not on file documented as of this encounter Plan of Treatment Not on file documented as of this encounter Visit Diagnoses Not on filedocumented in this encounter
--- OUTSIDE RECORDS SUMMARY | 2023-06-27 12:45 | XMS_ITS | Encounter Summary ---
Author Name Unknown Organization [facility] Address [address] [place] [phone] Phone Care Team Providers Care Anthropology And Archeology Instructor Name Role Phone Unavailable Primary Care Provider Unavailabl e Encounter Details Date Type Department Care Team (Latest Contact Info) Description 06/07/2023 Travel Social History Tobacco Use Types Packs/Day Years Used Date Smoking Tobacco: Every Day Cigarettes Smokeless Tobacco: Never Sex and Gender Information Value Date Recorded Sex Assigned at Female 02/22/2020 2:11 PM MANAGER UTILITY Gender Identity Female 02/22/2020 2:11 PM MANAGER UTILITY Sexual Orientation Not on file documented as of this encounter Plan of Treatment Not on file documented as of this encounter Visit Diagnoses Not on filedocumented in this encounter
--- OUTSIDE RECORDS SUMMARY | 2023-06-27 12:45 | XMS_ITS | Encounter Summary ---
Author Name Unknown Organization [facility] Address [address] [place] [address] Phone Care Team Providers Care Corporate Ethics Officer Name Role Phone Unavailable Primary Care Provider Unavailabl e Encounter Details Date Type Department Care Team (Late st Contact Info) Description 03/02/2023 Documentation Only Unspecified Department [place] Unknown, Provider Social History Tobacco Use Types Packs/Day Years Used Date Smoking Tobacco: Every Day Cigarettes Smokeless Tobacco: Never Sex and Gender Information Value Date Recorded Sex Assigned at Female 02/22/2020 2:11 PM FOOD MIXER ASSEMBLER Gender Identity Female 02/22/2020 2:11 PM FOOD MIXER ASSEMBLER Sexual Orientation Not on file COVID-19 Exposure Response Date Recorded In the last 10 days, have yo u been in contact with someone who was confirmed or suspected to have Coronavirus/COVID-19? No / Unsure 03/14/2023 1:55 PM FOOD MIXER ASSEMBLER documented as of this encounter Plan of Treatment Not on file documented as of this encounter Visit Diagnoses Not on filedocumented in this encounter
--- OUTSIDE RECORDS SUMMARY | 2023-06-27 12:45 | XMS_ITS | Clinical Summary ---
Author Name Unknown Organization [employer] Address [address] [place] [address] Phone Care Team Providers Care Hospice Clinical Marketer Name Role Phone Unavailable Primary Care Provider Unavailabl e Source Comments [employer] is fully rolled out on [employer]. Last update 07/12/08.[employer] Allergies Active Allergy Reactions Criticality Noted Date [...] disorder 02/22/2020 Opioid use disorder 02/22/2020 Overview: parts counterman remission with buprenorphine Encounters Date Type Department Care Team Description 06/07/2023 Travel 05/10/2023 Travel 04/12/2023 Travel from Last 3 Months Social History Tobacco Use Types Packs/Day Years Used Date Smoking Tobacco: Every Day Cigarettes Smokeless Tobacco: Never Tobacco Cessation:Ready to Q uit: Not Asked; Counseling Given: Not Answered Sex and Gender Information Value Date Recorded Sex Assigned at Female 02/22/2020 2:11 PM FUR BUYER Gender Identity Female 02/22/2020 2:11 PM FUR BUYER Sexual Orientation Not on file Last Filed Vital Signs Vital Sign Reading Time Taken Comments Blood Pressure - - Pulse 95 06/07/2023 3:48 PM CDT Temperature - - Respiratory Rate 18 06/07/2023 3:48 PM CDT Oxygen Saturation 95% 06/07/2023 3:48 PM CDT Inhaled Oxygen Concentration - - Weight - - Height - - Body Mass Index - - Plan of Treatment Health Maintenance Due Date Last Done Comments Dental Oral Exam 1982 Dental Prophylaxis 1982 Dental X-Ray: Bitewings 1982 Depression Management 1982 Periodontal Maintenance 1996 HIV Screening 1997 HEALTH MAINTENANCE PROTOCOL 2001 Imm: HepB (3 of 3 - 19+ 3-dose series) 07/08/2005 05/13/2005, 11/13/2003 Lipid Screening 05/23/2022 05/23/2017 PREVENTATIVE VISIT 06/18/2022 06/18/2021 Cervical Cancer Screening Age 30-65 06/18/2026 06/18/2021 TD/TDAP ADULTS 04/27/2032 04/27/2022, 04/08, 03/23/2007, Additional history exists Imm: Pneumonia Peds or At-Risk less than 65 years Completed 04/26/2022 COVID-19 Vaccine Completed 11/24/2022, 02/2021, 01/09/2021, Additional history exists INFLUENZA VACCINE Completed 11/24/2022, , 11/20/2020, Additional history exists HIB Aged Out No longer eligi ble based on patient's age to complete this topic RSV Immunoglobulin Aged Out No longer eligible based on patient's age to complete this topic Procedures Procedure Name Priority Date/Time Associated Diagnosis Comments PC LAB PAIN CLINIC URINE DRUG SCREEN Routine 06/07/2023 4:50 PM CDT Opioid dependence in remission ([facility]) PC LAB PAIN CLINIC URINE DRUG SCREEN Routine 05/10/2023 5:09 PM CDT Opioid dependence in remission ([facility]) PC LAB PAIN CLINIC URINE DRUG SCREEN Routine 04/12/2023 3:00 PM FUR BUYER Opioid dependence in remission ([facility]) PAP TEST Routine 06/18/2021 11:10 AM CDT PANEL LIPID Routine 05/23/2017 3:10 PM CDT from Last 3 Months or Most Recently Relevant to Health Maintenance Results * (ABNORMAL) PAIN CLINIC URINE DRUG SCREEN (06/07/2023 4:50 PM CDT) Only the most recent of3 resultswithin the time period is included. Amphetamine Ur NEG <=500 ng/mL [facility] Benzodiazipine NEG <=100 ng/mL [facility] Buprenorphine Ur POS(A) <=5 ng/mL [facility] Carisoprodol, Urine NEG <=100 ng/mL [facility] Cocaine Metab Ur NEG <=300 ng/mL [facility] Ethylglucuronide Urine NEG <=250 ng/mL [facility] Fentanyl, Urine NEG <=4 ng/mL [facility] Methadone Metabolite Urine NEG <=300 ng/mL [facility] Opiate Ur NEG <=300 ng/mL [facility] Oxycodone Ur NEG <=100 ng/mL [facility] THC Ur NEG <=50 ng/mL [facility] Tramadol, Urine NEG <=200 ng/mL [facility] Creat Urine 95 >=20 mg/dL [facility] PH Urine 5.9 5.0 - 7.0 [facility] Specific [place] 1.017 1.003 - 1.030 [facility] Hydrocodone, Ur NEG <=300 ng/mL [facility] Urine 06/07/2023 4:50 PM CDT 06/07/2023 4:50 PM CDT Gerardo Alonzo MD LABORATORY [facility] [address] [place] [address] from Last 3 Months or Most Recently Relevant to Health Maintenance Svetlana Cote Addiction Med Self 1980 [address] [facility] [address]
--- OUTSIDE RECORDS SUMMARY | 2023-06-27 12:45 | XMS_ITS | Encounter Summary ---
Author Name Unknown Organization [facility] [place] [place] Address [address] [facility] [place] [address] Phone Care Team Providers Care Design Quality Engineer Name Role Phone Unavailable Primary Care Provider Unavailabl e Reason for Visit * Reason Onset Date Comments Prior Authorization For Medications 02/09/2023 Sublocade Encounter Details Date Type Department Care Team (Late st Contact Info) Description 02/09/2023 Pharmacy Prior Authorization [facility] [address] [facility] [address] [place] [address] Cong Blood MD [address] [facility] [address] [place], [place] [phone] Social History Tobacco Use Types Packs/Day Years Used Date Smoking Tobacco: Never Assessed Sex and Gender Information Value Date Recorded Sex Assigned at Female 02/22/2020 2:11 PM SHINGLE PACKER Gender Identity Female 02/22/2020 2:11 PM SHINGLE PACKER Sexual Orientation Not on file COVID-19 Exposure Response Date Recorded In the last 10 days, have yo u been in contact with someone who was confirmed or suspected to have Coronavirus/COVID-19? No / Unsure 03/14/2023 1:55 PM SHINGLE PACKER documented as of this encounter Progress Notes * Eden Anderson - 02/09/2023 6:48 AM CST Prior Authorization Request Received Received a Prior Authorization request on medication Sublocade. Chart will be updated with progress. Eden Anderson CPhT Pharmacy Revenue and Prior Authorization (RAPA) Team Four Roll Calender Operator GLE PACKER * Eden Anderson - 02/09/2023 6:48 AM CST PA SUBMITTED A prior authorization (renewal) request for Sublocade has been submitted to [facility] [employer] insurance via FAX. We will update once we have a decision back. Per [employer], patient doesn't have active coverage, however the [place] Department of Human Services states she has Blue Plus. Contacting MA for work order. Work order: [id number] - up to 3 business days MA ID: [id number] BLUE PLUS - [id number] - submitted on availity 02/25/2023. Per [facility] rep I spoke with 03/02/2023, the request has been received but can take 7-10 business day to review. Eden Anderson CPhT Pharmacy Revenue and Prior Authorization (RAPA) Team Four Roll Calender Operator Information noted is based upon details provided by the patient and/or patient???s insurance plan as of this chart note???s date. Insurance coverage may change at any time, therefore a benefit statusrecheck should be completed for each visit. The patient is responsible for checking with insurance on applicable copays/coinsurance/deductible responsibilities GLE PACKER * Eden Anderson - 02/09/2023 6:48 AM CST Prior Authorization APPROVED (Medical Claim Billing Info) Medication Name: Sublocade Si mg or 100 mg monthly Injection as Prescribed Approved by insurance plan: [facility] [employer] Diagnosis: Opioid us disorder F11.90 Other medications tried and failed: oral therapy Prior Authorization # [id number] JOHN is valid from 02/25/2023 to 02/25/2024. Eden Anderson CPhT Pharmacy Revenue and Prior Authorization (RAPA) Team Four Roll Calender Operator Information noted is based upon details provided by the patient and/or patient???s insurance plan as of this chart note???s date. Insurance coverage may change at any time, therefore a benefit statusrecheck should be completed for each visit. The patient is responsible for checking with insurance on applicable copays/coinsurance/deductible responsibilities GLE PACKER * Booker Thomas V - 02/09/2023 6:48 AM CST Coverage Update As of 05/11/2023, this patient has the same active coverage through [employer] (verified). Prior Authorization for Sublocade is current and active until 02/25/24 for both 100 mg and 300 mg. No further action needed at this time. Please reach out with any questions or concerns. Thank you- Booker Thomas [facility] Dock Loader-Prior Authorization Booker Thomas V, 05/11/2023 2:49 PM Information noted is based upon details provided by the patient and/or patient???s insurance plan as of this chart note???s date. Insurance coverage may change at any time, therefore a benefit statusrecheck should be completed for each visit. The patient is responsible for checking with insurance on applicable copays/coinsurance/deductible responsibilities * Booker Thomas V - 02/09/2023 6:48 AM CST Coverage Update As of 06/09/2023, this patient has the same active coverage through [employer]. Prior Authorization for Sublocade is current and active until 02/25/24 for both 100 mg and 300 mg. No further action needed at this time. Please reach out with any questions or concerns. Thank you- Booker Thomas [facility] Dock Loader-Prior Authorization Booker Thomas V, 06/09/2023 11:49 AM Information noted is based upon details provided by the patient and/or patient???s insurance plan as of this chart note???s date. Insurance coverage may change at any time, therefore a benefit statusrecheck should be completed for each visit. The patient is responsible for checking with insurance on applicable copays/coinsurance/deductible responsibilities documented in this encounter Plan of Treatment Not on file documented as of this encounter Visit Diagnoses Not on filedocumented in this encounter
--- NOTE | 2023-06-27 13:00 | CT_ITS ---
Patient: YVETTE CHEEMA Facility:?[facility] Patient ID:?[id number] Site Patient ID:?[id number]. Site :?[id number] Study:?CT-Sinus W/O-06/27/2023 1:03:29 PM Ordering Physician:KATARZYNA Final Report: INDICATION: Sinusitis. TECHNIQUE: Noncontrast CT images of the paranasal sinuses. COMPARISON: CT sinuses 10/18/2022. FINDINGS: No air-fluid levels to suggest acute sinusitis. Postsurgical changes of endoscopic sinus surgery including bilateral maxillary antrostomy, bilateral uncinectomy, bilateral partial ethmoidectomy, and partial resection of the middle turbinates. Worsening moderate right and [id number] left maxillary sinus mucosal thickening. The maxillary sinus outflow tracts are widely patent. The frontal sinuses are hypoplastic and clear. Mild opacification of the ethmoid air cells. Minimal right sphenoid sinus mucosal thickening. The left sphenoid sinus is clear. The sphenoethmoid recesses are patent. Slight leftward nasal septal deviation. No nasal cavity masses. The mastoid air cells are clear. IMPRESSION: 1. Worsening moderate right and [id number] left maxillary sinus mucosal thickening. No air-fluid levels to suggest acute sinusitis. 2. Postsurgical changes of endoscopic sinus surgery. Please note that all CT scans at this facility use dose modulation, iterative reconstruction, and/or weight-based dosing when appropriate to reduce radiation dose to as low as reasonably achievable. Dictated by Rebel Glass MD @ 06/27/2023 8:16:40 PM Signed by:?Rebel Glass MD @06/27/2023 8:16:40 PM (Electronic Signature)
== END 2023-06-27 12:43 | disposition home or self-care (01) ==
LOC: CT 12:43
PROVIDERS: PCP Family Medicine; Visit Provider Otolaryngology
DX: J32.9 Chronic sinusitis, unspecified (principal); J32.0 Chronic maxillary sinusitis
CPT/HCPCS: 70486

== ENCOUNTER 2023-08-19 09:26 | Day surgery (SDC) | payer BC, SELFPAY ==
[2023-08-19] VITALS (11 sets, daily range): BP systolic 116–138; BP diastolic 67–100; PULSE 62–97; RESP 14–16; TEMP 36.1–36.8; O2SAT 95–99; BMI 29.9
--- OUTSIDE RECORDS SUMMARY | 2023-08-19 09:29 | XMS_ITS | Clinical Summary ---
Author Organization [employer] Address [address] [facility] [place] [address] Phone Care Team Providers Care Agriculture Mechanic Name Role Phone Unavailable Primary Care Provider Unavailabl e Source Comments [employer] is fully rolled out on [email or web address]. Last update 07/12/08.[employer] Allergies Active Allergy Reactions Criticality Noted Date [...] % dental gel SMARTSIG:By Mouth 03/28/2023 Active etonogestrel-ethi nyl estradiol (NUVARING) 0.12-0.015 MG/24HR vaginal ring SMARTSIG:Vagina l 01/12/2023 Active famotidine (PEPCID) 40 mg oral TABS Take 1 tablet (40 mg) by mouth daily. 04/16/2023 Active buprenorphine-nal oxone (SUBOXONE) 2-0.5 mg sublingual sublingual tabletIndications :Opioid dependence in remission (CMS/HHS),Chronic pain syndrome Dissolve 1 tablet under tongue daily for 28 days. 28 tablet 08/04/2023 09/01/2023 Active buprenorphine-nal oxone (SUBOXONE) 2-0.5 mg sublingual sublingual tabletIndications :Opioid dependence in remission (CMS/HHS),Chronic pain syndrome Dissolve 1 tablet under tongue daily for 30 days. 30 tablet 07/05/2023 08/04/2023 Discontinued (Reorder) Hospital, Clinic, or Other Facility Administered Medication Ordered Dose Route Frequency Start Date End Date Status buprenorphine ER (SUBLOCADE) 100 mg/0.5 mL injection 100 mgIndications:Opioid dependence in remission (CMS/HHS),Chronic pain syndrome 100 mg subcutaneous ONE TIME 08/04/2023 08/04/2023 Ended Active Problems Problem Noted Date Diagnosed Date Anxiety disorder 02/22/2020 Opioid use disorder 02/22/2020 Overview: medical terminologist remission with buprenorphine Encounters Date Type Department Care Team Description 08/04/2023 Travel 07/05/2023 Travel 06/07/2023 Travel from Last 3 Months Social History Tobacco Use Types Packs/Day Years Used Date Smoking Tobacco: Every Day Cigarettes Smokeless Tobacco: Never Tobacco Cessation:Ready to Q uit: Not Asked; Counseling Given: Not Answered Sex and Gender Information Value Date Recorded Sex Assigned at Female 02/22/2020 2:11 PM BRIM POUNCING MACHINE OPERATOR Gender Identity Female 02/22/2020 2:11 PM BRIM POUNCING MACHINE OPERATOR Sexual Orientation Not on file Last Filed Vital Signs Vital Sign Reading Time Taken Comments Blood Pressure - - Pulse 72 08/04/2023 3:48 PM CDT Temperature - - Respiratory Rate 18 08/04/2023 3:48 PM CDT Oxygen Saturation 100% 08/04/2023 3:48 PM CDT Inhaled Oxygen Concentration - [...] Screening 05/23/2022 05/23/2017 PREVENTATIVE VISIT 06/18/2022 06/18/2021 INFLUENZA VACCINE 09/08/2023 11/24/2022, , 11/20/2020, Additional history exists Cervical Cancer Screening Age 30-65 06/18/2026 06/18/2021 TD/TDAP ADULTS 04/27/2032 04/27/2022, 04/08, 03/23/2007, Additional history exists Imm: Pneumonia Peds or At-Risk less than 65 years Completed 04/26/2022 COVID-19 Vaccine Completed 11/24/2022, 02/2021, 01/09/2021, Additional history exists HIB Aged Out No longer eligi ble based on patient's age to complete this topic RSV Immunoglobulin Aged Out No longer eligible based on patient's age to complete this topic Procedures Procedure Name Priority Date/Time Associated Diagnosis Comments LAB PAIN CLINIC URINE DRUG SCREEN Routine 08/04/2023 5:13 PM CDT Opioid dependence in remission ([facility]) LAB PAIN CLINIC URINE DRUG SCREEN Routine 07/05/2023 4:52 PM CDT Opioid dependence in remission ([facility]) LAB PAIN CLINIC URINE DRUG SCREEN Routine 06/07/2023 4:50 PM CDT Opioid dependence in remission ([facility]) PAP TEST Routine 06/18/2021 11:10 AM CDT PANEL LIPID Routine 05/23/2017 3:10 PM CDT from Last 3 Months or Most Recently Relevant to Health Maintenance Results * (ABNORMAL) PAIN CLINIC URINE DRUG SCREEN (08/04/2023 5:13 PM CDT) Only the most recent of3 resultswithin the time period is included. Amphetamine Ur NEG <=500 ng/mL [facility] Comment:Corrected from PENDI NG ng/mL [NA] on 08/04/23 22:48:20 CDT by Orly Smith Benzodiazipine NEG <=100 ng/mL [facility] Buprenorphine Ur POS(A) <=5 ng/mL [facility] Carisoprodol, Urine NEG <=100 ng/mL [facility] Cocaine Metab Ur NEG <=300 ng/mL [facility] Ethylglucuronide Urine NEG <=250 ng/mL [facility] Fentanyl, Urine NEG <=4 ng/mL [facility] Methadone Metabolite Urine NEG <=300 ng/mL [facility] Opiate Ur NEG <=300 ng/mL [facility] Oxycodone Ur NEG <=100 ng/mL [facility] THC Ur NEG <=50 ng/mL [facility] Tramadol, Urine NEG <=200 ng/mL [facility] Creat Urine 155 >=20 mg/dL [facility] PH Urine 6.0 5.0 - 7.0 [facility] Specific [place] 1.020 1.003 - 1.030 [facility] Hydrocodone, Ur NEG <=300 ng/mL [facility] Urine 08/04/2023 5:13 PM CDT 08/04/2023 5:13 PM CDT Annetta Mercedes RIPRAP PLACING SUPERVISOR, MANAGER OF FINANCIAL REPORTING LABORATORY [facility] [address] [place] [id number] from Last 3 Months or Most Recently Relevant to Health Maintenance [address] [place] [address] Svetlana Cote Addiction Med Self 1980 [address] [place] [address]
--- OUTSIDE RECORDS SUMMARY | 2023-08-19 09:29 | XMS_ITS | Referral Summary ---
Author Organization [employer] Address [address] [place] [phone] Phone Care Team Providers Care Plaster And Stucco Worker Name Role Phone Unavailable Primary Care Provider Unavailabl e Source Comments [employer] is fully rolled out on [employer]. 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 Social History Tobacco Use Types Packs/Day Years Used Date Smoking Tobacco: Every Day Cigarettes Smokeless Tobacco: Never Tobacco Cessation:Ready to Q uit: Not Asked; Counseling Given: Not Answered Sex and Gender Information Value Date Recorded Sex Assigned at Female 02/22/2020 2:11 PM PAY STATION DEPARTMENT MANAGER Gender Identity Female 02/22/2020 2:11 PM PAY STATION DEPARTMENT MANAGER Sexual Orientation Not on file Last Filed [...] 5:13 PM CDT Opioid dependence in remission ([facility]) PC LAB PAIN CLINIC URINE DRUG SCREEN Routine 07/05/2023 4:52 PM CDT Opioid dependence in remission ([facility]) PC LAB PAIN CLINIC URINE DRUG SCREEN Routine 06/07/2023 4:50 PM CDT Opioid dependence in remission ([facility]) PAP TEST Routine 06/18/2021 11:10 AM CDT PANEL LIPID Routine 05/23/2017 3:10 PM CDT from Last 3 Months or Most Recently Relevant to Health Maintenance Results * (ABNORMAL) PAIN CLINIC URINE DRUG SCREEN (08/04/2023 5:13 PM CDT) Only the most recent of3 resultswithin the time period is included. Amphetamine Ur NEG <=500 ng/mL [facility] Comment:Corrected from PENDI NG ng/mL [NA] on 08/04/23 22:48:20 CDT by Orly Smith Benzodiazipine NEG <=100 ng/mL [facility] Buprenorphine Ur POS(A) <=5 ng/mL [facility] Carisoprodol, Urine NEG <=100 ng/mL [facility] Cocaine Metab Ur NEG <=300 ng/mL [facility] Ethylglucuronide Urine NEG <=250 ng/mL [facility] Fentanyl, Urine NEG <=4 ng/mL [facility] Methadone Metabolite Urine NEG <=300 ng/mL [facility] Opiate Ur NEG <=300 ng/mL [facility] Oxycodone Ur NEG <=100 ng/mL [facility] THC Ur NEG <=50 ng/mL [facility] Tramadol, Urine NEG <=200 ng/mL [facility] Creat Urine 155 >=20 mg/dL [facility] PH Urine 6.0 5.0 - 7.0 [facility] Specific [place] 1.020 1.003 - 1.030 [facility] Hydrocodone, Ur NEG <=300 ng/mL [facility] Urine 08/04/2023 5:13 PM CDT 08/04/2023 5:13 PM CDT Annetta Mercedes SUPERVISOR PRODUCTION DEPARTMENT, COAL DUMPING EQUIPMENT OPERATOR LABORATORY [facility] [address] [address] from Last 3 Months or Most Recently Relevant to Health Maintenance [address] [place] [address] Svetlana Cote Addiction Med Self 1980 [address] [place] [address]
--- OUTSIDE RECORDS SUMMARY | 2023-08-19 09:30 | XMS_ITS | Encounter Summary ---
Author Organization [facility] Address [address] [place] [phone] Phone Care Team Providers Care Storage Engineer Name Role Phone Unavailable Primary Care Provider Unavailabl e Encounter Details Date Type Department Care Team (Latest Contact Info) Description 06/07/2023 Travel Social History Tobacco Use Types Packs/Day Years Used Date Smoking Tobacco: Every Day Cigarettes Smokeless Tobacco: Never Sex and Gender Information Value Date Recorded Sex Assigned at Female 02/22/2020 2:11 PM GOLF COURSE ASSISTANT Gender Identity Female 02/22/2020 2:11 PM GOLF COURSE ASSISTANT Sexual Orientation Not on file documented as of this encounter Plan of Treatment Not on file documented as of this encounter Visit Diagnoses Not on filedocumented in this encounter
--- OUTSIDE RECORDS SUMMARY | 2023-08-19 09:30 | XMS_ITS | Encounter Summary ---
Author Organization [facility] Address [address] [place] [phone] Phone Care Team Providers Care Accident Report Clerk Name Role Phone Unavailable Primary Care Provider Unavailabl e Encounter Details Date Type Department Care Team (Latest Contact Info) Description 07/05/2023 Travel Social History Tobacco Use Types Packs/Day Years Used Date Smoking Tobacco: Every Day Cigarettes Smokeless Tobacco: Never Sex and Gender Information Value Date Recorded Sex Assigned at Female 02/22/2020 2:11 PM DECORATIVE ENGRAVER APPRENTICE Gender Identity Female 02/22/2020 2:11 PM DECORATIVE ENGRAVER APPRENTICE Sexual Orientation Not on file documented as of this encounter Plan of Treatment Not on file documented as of this encounter Visit Diagnoses Not on filedocumented in this encounter
--- OUTSIDE RECORDS SUMMARY | 2023-08-19 09:30 | XMS_ITS | Encounter Summary ---
Author Organization [facility] Address [address] [place] [address] Phone Care Team Providers Care Continuous Vulcanizing Machine Operator Name Role Phone Unavailable Primary Care Provider Unavailabl e Encounter Details Date Type Department Care Team (Latest Contact Info) Description 08/04/2023 Travel Social History Tobacco Use Types Packs/Day Years Used Date Smoking Tobacco: Every Day Cigarettes Smokeless Tobacco: Never Sex and Gender Information Value Date Recorded Sex Assigned at Female 02/22/2020 2:11 PM DOUGH MOLDER Gender Identity Female 02/22/2020 2:11 PM DOUGH MOLDER Sexual Orientation Not on file documented as of this encounter Plan of Treatment Not on file documented as of this encounter Visit Diagnoses Not on filedocumented in this encounter
--- OUTSIDE RECORDS SUMMARY | 2023-08-19 09:30 | XMS_ITS | Clinical Summary ---
Author Organization [facility] Address [place], [place] [address] Care Team Providers Care Assembly Detailer Name Role Phone Ezio Fraga MD Primary [...] Dispensed Refills Start Date End Date Status sennosides-docusa te, 8.6-50 mg, (SENOKOT S) 8.6-50 mg tabletIndications :Constipation due to opioid therapy Take 2 tablets by mouth 2 times daily. Take this while taking the Dilaudid (or other narcotic pain meds) to avoid constipation 100 tablet 7 Active magnesium 250 mg tab Take 1 tablet by mouth once daily. 0 8 Active medication order composer Tumeric Curcumin 0 8 Active sodium bicarb-sodium chloride (NEILMED SINUS RINSE)Indications :Chronic maxillary sinusitis once daily if needed for Nasal Congestion. Rinse both sides. Follow mixing instructions. Use daily starting the day after surgery. 1 Bottle 8 Active fluticasone (50 mcg per actuation) nasal solution (FLONASE)Indicati ons:Acute recurrent maxillary sinusitis Inhale 1 [place] into both nostrils 2 times daily. 48 g 3 2 Active polyethylene glycoL (Miralax) 17 gram/scoop powder Mix 1 scoop (17 g) in liquid then take by mouth once daily if needed for Constipation. 0 3 Active albuterol HFA (PRO-AIR; VENTOLIN; PROVENTIL) 90 mcg/actuation inhaler INHALE 2 PUFFS BY MOUTH EVERY 4 TO 6 HOURS NEEDED FOR SHORTNESS OF BREATH/WHEEZING 3 Active BIOTIN ORAL Take by mouth. Active cyanocobalamin, vitamin B-12, (VITAMIN B-12 ORAL) Take by mouth. Active buprenorphine-nal oxone, 8 mg-2 mg, (SUBOXONE) (8-2 mg/tablet) sublingual tabletIndications :Neck pain, chronic Patient taking 2-1/2 tablets/day 30 Tablet 3 Active etonogestreL-ethi nyl estradioL (NuvaRing) vaginal ringIndications:U ses contraception INSERT 1 RING VAGINALLY AND LEAVE IN PLACE FOR 3 CONSECUTIVE WEEKS THEN REMOVE FOR 1 WEEK. REPEAT WITH NEW RING (DOES NOT ALWAYS SKIP WEEK) 3 Each 2 3 Active famotidine (PEPCID) 40 mg tabletIndications :Gastroesophageal reflux disease without esophagitis TAKE ONE TABLET(40MG) BY MOUTH ONCE DAILY 90 Tablet 2 3 Active gabapentin (NEURONTIN) 300 mg capsuleIndication s:Neck pain, chronic TAKE 2 CAPSULES (600 MG) BY MOUTH TWO TIMES DAILY. 360 Capsule 1 4 Active busPIRone (BUSPAR) 10 mg tabletIndications :Anxiety disorder, unspecified type Take 2 Tablets (20 mg) by mouth three times daily. 540 Tablet 1 4 Active clonazePAM (KLONOPIN) 0.5 mg tabletIndications :Anxiety disorder, unspecified type TAKE 1/2 TABLET(0.25MG) BY MOUTH 2 TIMES DAILY IF NEEDED FOR ANXIETY OR AGITATION 30 Tablet 2 4 Active lamoTRIgine (LAMICTAL) 150 mg tabletIndications :Anxiety disorder, unspecified type,Recurrent major depressive disorder, in partial remission (HC) Take 2 Tablets (300 mg) by mouth at bedtime. 180 Tablet 1 4 Active venlafaxine (EFFEXOR XR) 150 mg Extended-Release capsuleIndication s:Anxiety disorder, unspecified type,Recurrent major depressive disorder, in partial remission (HC) Take 1 Capsule (150 mg) by mouth once daily with evening meal. 90 Capsule 1 4 Active traZODone (DESYREL) 50 mg tabletIndications :Psychophysiologi barrie insomnia Take 1.5-2 Tablets (75-100 mg) by mouth at bedtime if needed for Sleep. 180 Tablet 5 4 Active tiZANidine (ZANAFLEX) 4 mg tabletIndications :Cervical stenosis of spinal canal TAKE ONE TABLET (4 MG) BY MOUTH EVERY 6 HOURS IF NEEDED FOR MUSCLE SPASM. 60 Tablet 4 Active PreviDent 5000 Sensitive 1.1-5 % pste APPLY ON A SOFT BRISSEL TOOTHBRUSH, BRUSH FOR 1 MINUTE, EXPECTORATE (SPIT OUT), THEN RINSE MOUTH THUROUGHLY. DO THIS TWICE A DAY Active pantoprazole (PROTONIX) 40 mg delayed-release tabletIndications :Chronic reflux esophagitis TAKE 1 TABLET (40 MG) BY MOUTH ONCE DAILY. 90 Tablet 3 4 Active COVID-19 antigen test (Flowflex Covid-19 AG Home Test) kit Use as directed on packaging. 4 Kit 2 024 Discontinued(*P atient states no longer taking) varenicline (Chantix) 1 mg tabletIndications :Tobacco abuse Take 1 tablet (1 mg) by mouth once daily with a meal. 56 Tablet 1 2 024 Discontinued(*P atient states no longer taking) budesonide (PULMiCORT) 1 mg/2 mL neb suspensionIndicat ions:Chronic maxillary sinusitis,Nasal congestion Put one respule in sinus rinse kit and irrigate twice daily 120 mL 3 024 Discontinued(*P atient states no longer taking) celecoxib (CELEBREX) 200 mg capsuleIndication s:DDD (degenerative disc disease), lumbar Take 1 Capsule (200 mg) by mouth two times daily with meals. 60 Capsule 2 4 024 Discontinued(*M edication adjustment) pantoprazole (PROTONIX) 40 mg delayed-release tabletIndications :Chronic reflux esophagitis Take 1 Tablet (40 mg) by mouth once daily. 90 Tablet 4 024 Discontinued tiZANidine (ZANAFLEX) 4 mg tabletIndications :Cervical stenosis of spinal canal TAKE ONE TABLET (4 MG) BY MOUTH EVERY 6 HOURS IF NEEDED FOR MUSCLE SPASM. 60 Tablet 4 024 Discontinued Active Problems Problem Noted Date Diagnosed [...] Encounters Date Type Department Care Team Description 08/16/[address] [phone] Ezio Fraga MD Refill Request (Pantoprazole) 08/12/2023 1:10 PM CDT Preop Visit [address] [phone] Ezio Fraga MD Preoperative Exam (Surg 08/24/2023 Turbinate resection w/wash; [facility]) 08/12/2023 Travel 08/01/[address] [phone] Ezio Fraga MD Refill Request (Tizanidine) 07/13/2023 10:15 AM CDT Office Visit [facility] [address] [place] [address] Kim Fierro MD Follow Up; Medication Management 07/13/2023 Travel 06/27/2023 Orders Only [facility] Scanner 1 scan: (1-Ord) [facility], CT SINUS WO CON, 06/27/2023 06/02/[address] [phone] Ezio Fraga MD Refill Request (Tizanidine, Gabapentin) 05/30/2023 Medical Messaging [facility] [address] [place] [address] Robby Mayen MD Follow up from last injection from Last 3 Months Immunizations Name Administration Dates Next Due COVID-19 Vaccine Spikevax (M oderna 50mcg/0.5mL) 12YO+ 4432-3052 Formula PF 11/24/2022 COVID-19 vaccine (Workube-Bio NTech 30mcg/0.3mL) PFMDV 03/07/2020,02/15/2020 DTaP 03/23/2007 Hepatitis B (Adult) 05/13/2005,11/13/2003 [...] Answer Date Recorded PHQ-2 TOTAL SCORE 4 07/13/2023 Social Connections Answer Date Recorded Frequency of [...] Sign Reading Time Taken Comments Blood Pressure 108/60 08/12/2023 1:19 PM CDT Pulse 76 08/12/2023 1:19 PM CDT Temperature 36.8 ??C (98.2 ??F) 03/03/2023 1:14 PM CS T Respiratory Rate 18 08/12/2023 1:19 PM CDT Oxygen Saturation 99% 05/05/2023 2:05 PM CDT Inhaled Oxygen Concentration - - Weight 81.6 kg (180 lb) 08/12/2023 1:19 PM CDT Height 165.1 cm (5' 5) 08/12/2023 1:19 PM CDT Body Mass Index 29.95 08/12/2023 1:19 PM CDT Plan of Treatment Upcoming Encounters Date Type Department Care Team (Late st Contact Info) Description 11/01/2023 9:30 AM CDT Nutrition/Dietici an [facility] [address] [place] [address] [place] [address] 01/09/2024 10:15 AM KIDS CLUB ATTENDANT Office Visit [facility] [address] [place] [address] Kim Fierro MD [address] [place] [address] Health Maintenance Due Date Last Done Comments Influenza for age 9-49 10/09/2023 , 10/22/2021, 11/20/2020, Additional history exists Depression screening for age 12+ 07/12/2024 07/13/2023, 01/12/2023, 11/08/2022, Additional history exists BMI (ht and wt on same day) for age 18+ 08/11/2024 08/12/2023, 12/10/2022, 04/26/2022, Additional history exists Pap test for age 21-65 06/18/2026 , 06/18/2021, 02/09/2016 Tetanus booster 04/27/2032 04/27/2022, 04/08, 03/23/2007 Pneumococcal series for age 6-64 Completed 04/27/19 Tdap Completed 04/27/2022, 03/23/2007 HIV for age 15-65 Completed 04/30/2022 Hepatitis C screening for ag e 18-79 Completed 04/30/2022 COVID-19 vaccine series Completed 11/25/19, 01/09/2021, 03/07/2020, Additional history exists Medical Devices Implanted Type Area Electric Motor Assembler And Tester Device Identifier Shelf Expiration Date Model / Serial / Lot Set Screw Cerv Ant 1.8mm Cslp Titnm - [id number] Implanted:Qty: 8 on 12/24/2014 by Toribio Orozco MD at [facility] Spine Implants N/A: Spine J And J Depuy Spine 497.78# / / Cable Lmbr Atlasral Crimp Titnm - [id number] Implanted:Qty: 1 on 06/18/2016 by Toribio Orozco MD at [facility] Spine Implants Spine Medtronic Spine/Ortho 04/12/2024 826-211# / / [id number] Cable Lmbr Chester Sgl W/ Integral Crimp Titnm - [id number] Implanted:Qty: 1 on 06/18/2016 by Toribio Orozco MD at [facility] Spine Implants Spine Medtronic Spine/Ortho 08/19/2023 826-213# / / [id number] 1023bone 15x12.5x8mm Mtf Spacer Baltazar/Canclls [[id number]] Implanted:Qty: 1 on 12/24/2014 by Toribio Orozco MD at [facility] Explanted:at [facility] (Quantity not on file) N/A: Spine Musculoskeletal Transplant 10/10/2018 [id number]# / [id number] / [id number] 1024bone 15x12.5x8mm Mtf Spacer Baltazar/Canclls [[id number]] Implanted:Qty: 1 on 12/24/2014 by Toribio Orozco MD at [facility] Explanted:at [facility] (Quantity not on file) N/A: Spine Musculoskeletal Transplant 10/10/2018 288109# / [id number] / [id number] 1168bone 15x12.5x8mm Mtf Spacer Baltazar/Canclls [[id number]] Implanted:Qty: 1 on 12/24/2014 by Toribio Orozco MD at [facility] Explanted:at [facility] (Quantity not on file) N/A: Spine Musculoskeletal Transplant 07/19/2018 [id number]# / [id number] / Screw Cerv Ant 4x14mm Cslp Cortical Slf Tpping Expansion Hea - [id number] Implanted:Qty: 8 on 12/24/2014 by Toribio Orozco MD at [facility] N/A: Spine J And J Depuy Spine 487.044# / / Plate Cerv 3lvl 54mm Cslp Variable Titnm - [id number] Implanted:Qty: 1 on 12/24/2014 by Toribio Orozco MD at [facility] N/A: Spine J And J Depuy Spine 450.174# / / [id number] 1120bone 30cc Mtf Chips Canclls Pouch [[id number]] Implanted:Qty: 1 on 06/18/2016 by Toribio Orozco MD at [facility] Explanted:at [facility] (Quantity not on file) Spine Musculoskeletal Transplant 08/26/2017 [id number]# / [id number] / Screw Cerv Post 3.5x10mm Synapse Va Canncls Titnm - [id number] Implanted:Qty: 3 on 06/18/[address] [facility] Spine J And J Depuy Spine 04.614.0 10# / / Set Screw Cerv Synapse - [id number] Implanted:Qty: 3 on 06/18/[address] [facility] Spine J And J Depuy Spine 04.614.5 08# / / Jc Cerv 50mmx3.5 Synapse Cvd Titnm - [id number] Implanted:Qty: 1 on 06/18/[address] [facility] Spine J And J Depuy Spine 04.614.7 50# / / Procedures Procedure Name Priority Date/Time Associated Diagnosis Comments SCAN-CT INTERPRETATION 06/27/2023 12:00 AM CDT LC HIV-1/O/2, 4TH GENERATION Routine 04/30/2022 11:46 AM CDT Screening for HIV (human immunodeficiency virus) LC HCV ANTIBODY RFX TO QUANT PCR Routine 04/30/2022 11:46 AM CDT Need for hepatitis C screening test RESEARCH PROFESSIONAL THIN PREP PAP SCREEN IMAGED Routine 06/18/2021 11:10 AM CDT Pap smear for cervical cancer screening from Last 3 Months or Most Recently Relevant to Health Maintenance Results * SCAN-CT INTERPRETATION (06/27/2023 12:00 AM CDT) Anatomical Region Laterality Modality Other Scanner OTHER * LC HCV ANTIBODY RFX TO QUANT PCR (04/30/2022 11:46 AM CDT) HCV Ab Non Reactive Non Reactive 05/04/2022 11:09 AM CDT FOR ESOTERIC TESTING (CET) Blood BLOOD SPECIMEN / Unknown Venipuncture / Unknown 04/30/2022 11:46 AM CDT 04/30/2022 11:49 AM CDT Narrative FOR ESOTERIC TESTING (CET) - 05/04/2022 11:09 AM CDT Performed at: ??01 - [address] ??[id number] Master Carpenter: Derick Phillips MD, Phone: ??[phone] Nickie Hall MD LABORATORY FOR ESOTERIC TESTING (CET) [address] [place] [address], * LC HIV-1/O/2, 4TH GENERATION (04/30/2022 11:46 AM CDT) [facility] HIV Scr 4th Gen Non Reactive Non Reactive 05/04/2022 9:[address] [facility] ESOTERIC TESTING ([facility]) Comment: HIV Negative HIV-1/HIV-2 antibodies and HIV-1 p24 antigen were NOT detected. There is no laboratory evidence of HIV infection. Blood BLOOD SPECIMEN / Unknown Venipuncture / Unknown 04/30/2022 11:46 AM CDT 04/30/2022 11:49 AM CDT Narrative [facility] ESOTERIC TESTING (CET) - 05/04/2022 9:10 AM CDT Performed at: ??01 - [facility] [address] [place], [place] ??[id number] Master Carpenter: Derick Phillips MD, Phone: ??[phone] Nickie Hall MD LABORATORY [facility] ESOTERIC TESTING ([facility]) [address] [place] [address], * RESEARCH PROFESSIONAL THIN PREP PAP SCREEN IMAGED (06/18/2021 11:10 AM CDT) [facility] Case Report Gynecologic Cytology Report ? Case: [id number] ? Authorizing Provider: ??Ezio Fraga, ?? Collected: ? 06/18/2021 1110 ? MD ? Ordering Location: ? [facility] ?Received: ?06/18/2021 1239 ? Clinic ? First Screen: ?Rhett Fregoso ? Specimen: ?RESEARCH PROFESSIONAL ThinPrep Vial Screening, Cervical/Vaginal ? 07/02/2021 12:12 PM CDT [facility] LABORATORY-C ENTRAL LABORATORY INTERPRETATION/ RESULT NEGATIVE FOR INTRAEPITHELIAL LESION OR MALIGNANCY (NIL) (none) 07/02/2021 12:12 PM CDT [facility] LABORATORY- ENTRAL LABORATORY IMEN ADEQUACY Satisfactory for evaluation No endocervical component seen 07/02/2021 12:12 PM CDT [facility] LABORATORY-C ENTRAL LABORATORY HPV REQUEST HPV if ASCUS 07/02/2021 12:12 PM CDT [facility] LABORATORY-C ENTRAL LABORATORY Date of LMP unknown 07/02/2021 12:12 PM CDT [facility] LABORATORY-C ENTRAL LABORATORY Last Pap Date 02/09/16 07/02/2021 12:12 PM CDT [facility] LABORATORY-C ENTRAL LABORATORY Last Pap Result NIL 12:12 PM CDT [facility] LABORATORY-C ENTRAL LABORATORY Abnormal Pap or Afton Bx in last 5 years No 07/02/2021 12:12 PM CDT [facility] Menstrual Status Hormonally Suppressed 07/02/2021 12:12 PM CDT [facility] Afton Bx Done Today No 07/02/2021 12:12 PM CDT [facility] Additional Information None given 07/02/2021 12:12 PM CDT [facility] Comment: Cytology is screened at [facility] Laboratory - [address], [place] [address] and [facility] - [address] [place] [address] and [facility] - [address] [place] [address] [facility] - [address], [place] [address] Automated Review Successful 07/02/2021 12:12 PM CDT [facility] Comment:Specimen processed s uccessfully by automated ticket scheduler device, ThinPrep Imaging System, [employer] Note The pap test is a [...] and malignant lesions. 07/02/2021 12:12 PM CDT [facility] Other (Cervical/Vagina l) Non-Blood / Unknown 06/18/2021 11:10 AM CDT 06/18/2021 12:39 PM CDT Ezio Fraga MD PATHOLOGY/CYTO LOGY [facility] LABORATORY [address] [place] [address], [place] from Last 3 Months or Most Recently [...] 11:11 AM 12/24/2014 6:14 PM Care Teams Assembly Detailer Relationship Specialty Start Date End Date Ezio Fraga MD [address] [facility] [place] [address] PCP - General Family Practice 11/15/22
--- OUTSIDE RECORDS SUMMARY | 2023-08-19 09:30 | XMS_ITS | Encounter Summary ---
Author Organization [facility] Address [address] [facility] [place] [address] Phone Care Team Providers Care Monogram Maker Name Role Phone Unavailable Primary Care Provider Unavailabl e Reason for Visit * Reason Onset Date Comments Prior Authorization For Medications 02/09/2023 Sublocade Encounter Details Date Type Department Care Team (Late st Contact Info) Description 02/09/2023 Pharmacy Prior Authorization [facility] [address] [facility] [address] [place], [place] [phone] Cong Blood MD [address] [place], [place] [phone] Social History Tobacco Use Types Packs/Day Years Used Date Smoking Tobacco: Never Assessed Sex and Gender Information Value Date Recorded Sex Assigned at Female 02/22/2020 2:11 PM ENTRY REP Gender Identity Female 02/22/2020 2:11 PM ENTRY REP Sexual Orientation Not on file COVID-19 Exposure Response Date Recorded In the last 10 days, have yo u been in contact with someone who was confirmed or suspected to have Coronavirus/COVID-19? No / Unsure 03/14/2023 1:55 PM ENTRY REP documented as of this encounter Progress Notes * Eden Anderson - 02/09/2023 6:48 AM CST Prior Authorization Request Received Received a Prior Authorization request on medication Sublocade. Chart will be updated with progress. Eden Anderson CPhT Pharmacy Revenue and Prior Authorization (RAPA) Team Civil Estimator Y REP * Eden Anderson - 02/09/2023 6:48 AM CST [place] SUBMITTED A prior authorization (renewal) request for Sublocade has been submitted to [facility] [employer] insurance via FAX. We will update once we have a decision back. Per [employer], patient doesn't have active coverage, however the [place] Department of Human Services states she has Blue Plus. Contacting [place] for work order. Work order: [id number] - up to 3 business days MA ID: [id number] BLUE PLUS - [id number] - submitted on availity 02/25/2023. Per [facility] rep I spoke with 03/02/2023, the request has been received but can take 7-10 business day to review. Eden Anderson CPhT Pharmacy Revenue and Prior Authorization (RAPA) Team Civil Estimator Information noted is based upon details provided by the patient and/or patient???s insurance plan as of this chart note???s date. Insurance coverage may change at any time, therefore a benefit statusrecheck should be completed for each visit. The patient is responsible for checking with insurance on applicable copays/coinsurance/deductible responsibilities Y REP * Eden Anderson - 02/09/2023 6:48 AM CST Prior Authorization APPROVED (Medical Claim Billing Info) Medication Name: Sublocade Si mg or 100 mg monthly Injection as Prescribed Approved by insurance plan: [facility] [employer] Diagnosis: Opioid us disorder F11.90 Other medications tried and failed: oral therapy Prior Authorization # [id number] [place] is valid from 02/25/2023 to 02/25/2024. Eden Anderson CPhT Pharmacy Revenue and Prior Authorization (RAPA) Team Civil Estimator Information noted is based upon details provided by the patient and/or patient???s insurance plan as of this chart note???s date. Insurance coverage may change at any time, therefore a benefit statusrecheck should be completed for each visit. The patient is responsible for checking with insurance on applicable copays/coinsurance/deductible responsibilities Y REP * Booker Thomas V - 02/09/2023 6:48 AM CST Coverage Update As of 05/11/2023, this patient has the same active coverage through [employer] (verified). Prior Authorization for Sublocade is current and active until 02/25/24 for both 100 mg and 300 mg. No further action needed at this time. Please reach out with any questions or concerns. Thank you- Booker Thomas [facility] Remote Computer Terminal Operator-Prior Authorization Booker Thomas V, 05/11/2023 2:49 PM [...] patient has the same active coverage through [employer]. Prior Authorization for Sublocade is current and active until 02/25/24 for both 100 mg and 300 mg. No further action needed at this time. Please reach out with any questions or concerns. Thank you- Booker Thomas [facility] Remote Computer Terminal Operator-Prior Authorization Booker Thomas V, 06/09/2023 11:49 AM [...] 6:48 AM CST Coverage Update As of 07/07/2023, this patient has the same active coverage through [employer]. Prior Authorization for Sublocade is current and active until 02/25/24 for both 100 mg and 300 mg. No further action needed at this time. Please reach out with any questions or concerns. Thank you- Booker Thomas [facility] Remote Computer Terminal Operator-Prior Authorization Booker Thomas V, 07/07/2023 1:15 PM Information noted is based upon details [...]
[2023-08-19 10:10] LABS: Ur HCG Qualitative* Negative (Negative)
[2023-08-19] MEDS: LACTATED RINGERS 1000 ML 1,000 ML 100 ML IV (10:28)
[2023-08-19] MEDS: SODIUM CHLORIDE 0.9 % (FLUSH) 10 ML SYRINGE IVF (10:29)
[2023-08-19] MEDS: OXYMETAZOLINE 0.05% NASAL SPRAY 2 SPRAY NOSTRIL-B (10:29)
[2023-08-19] MEDS: BUPIVACAINE 0.5%/EPINEPHRINE 0.9 MG (30.9 ML) INJECTION (10:45)
[2023-08-19] MEDS: COCAINE HCL 4 % 4 ML SOLUTION NOSTRIL-B (11:05)
[2023-08-19] MEDS: MUPIROCIN 1 GM PACKET 1 APPLIC TOPICAL (11:05)
--- NOTE | 2023-08-19 11:11 | W.PM.ENTPROC ---
Procedure Note Date of procedure: 08/19/23 Procedure: Preop diagnosis bilateral recurrent and chronic maxillary sinusitis, bilateral inferior turbinate hypertrophy with nasal obstruction Postoperative diagnosis same Procedure endoscopic bilateral maxillary antrostomies with tissue removal, conservative intramural cautery anterior head inferior turbinates Under general trach anesthesia patient was prepped and draped in usual fashion image guidance system registered to good accuracy. The left maxillary sinus was inspected with the 0 degree scope and there was some polypoid mucosal thickening at the entrance which was removed. There was a small amount of purulent fluid in the floor of the sinus. This was repeated on the right side in identical fashion with identical findings. The inferior turbinates were outfractured the Coblation 1 used to cauterize intramurally at the anterior head and a tiny bit at the inferior anterior 10%. I was very conservative as she has already had significant reduction of the inferior turbinates. Merocel pack coated in Bactroban was placed in each side of nose. The patient procedure was taken recovery in satisfactory condition. Blood loss was less than 10 mL. Surgeon: Chevy Mejia MD
[2023-08-19] MEDS: AYR SALINE NASAL GEL 1 APPLIC NOSTRIL-B (11:15)
--- NOTE | 2023-08-19 11:28 | W.ANESCHARGE ---
Anesthesia Charges Start Date/Time Anesthesia Start Date: 08/19/23 Anesthesia Start Time: 10:40 Stop Date/Time Anesthesia Stop Date: 08/19/23 Anesthesia Stop Time: 11:24
[2023-08-19] MEDS: fentaNYL 100 MCG/2 ML inj 50 MCG IVP (11:40)
--- NOTE | 2023-08-19 11:59 | W.ANESCHARGE ---
Anesthesia Charges Start Date/Time Anesthesia Start Date: 08/19/23 Anesthesia Start Time: 10:40 Stop Date/Time Anesthesia Stop Date: 08/19/23 Anesthesia Stop Time: 11:24
[2023-08-19] MEDS: OXYCODONE 5 MG TABLET PO (12:00)
[2023-08-19] MEDS: ACETAMINOPHEN 325 MG TABLET PO (12:00)
== END 2023-08-19 13:09 | disposition home or self-care (01) ==
LOC: OR 09:28
PROVIDERS: PCP Family Medicine; Visit Provider Otolaryngology
PROC: (CPT 31231; principal; 2023-08-19 10:45)
DX: J32.0 Chronic maxillary sinusitis (principal); J34.3 Hypertrophy of nasal turbinates
CPT/HCPCS: 31267; 30802; 160; 81025; 88305; 88312; A9270; J1100; J2250; J2405; J2704; J2710; J3010; J7120

== ENCOUNTER 2023-11-01 09:22 | Outpatient (CLI) | payer BC, SELFPAY ==
--- OUTSIDE RECORDS SUMMARY | 2023-11-01 09:26 | XMS_ITS | Clinical Summary ---
Author Organization [employer] [facility] Address [place], [place] [address] Care Team Providers Care Bobbin Cleaner Name Role Phone Ezio Fraga MD Primary [...] (FLONASE)Indicatio ns:Acute recurrent maxillary sinusitis Inhale 1 [place] into both nostrils 2 times daily. 48 [...] 3 Active etonogestreL-ethin yl estradioL (NuvaRing) vaginal ringIndications: es contraception INSERT 1 RING VAGINALLY AND LEAVE IN PLACE FOR 3 CONSECUTIVE WEEKS THEN REMOVE FOR 1 WEEK. REPEAT WITH NEW RING (DOES NOT ALWAYS SKIP WEEK) 3 Each 2 3 Active gabapentin (NEURONTIN) 300 mg capsuleIndications :Neck pain, chronic TAKE 2 CAPSULES (600 MG) BY MOUTH TWO TIMES DAILY. 360 Capsule 1 4 Active busPIRone (BUSPAR) 10 mg tabletIndications: Anxiety disorder, unspecified type Take 2 Tablets (20 mg) by mouth three times daily. 540 Tablet 1 4 Active clonazePAM (KLONOPIN) 0.5 mg tabletIndications: Anxiety disorder, unspecified type TAKE 1/2 TABLET(0.25MG) BY MOUTH 2 TIMES DAILY IF NEEDED FOR ANXIETY OR AGITATION 30 Tablet 2 4 Active lamoTRIgine (LAMICTAL) 150 mg tabletIndications: Anxiety [...] 1 4 Active traZODone (DESYREL) 50 mg tabletIndications: Psychophysiologica l insomnia Take 1.5-2 Tablets (75-100 mg) by mouth at bedtime if needed for Sleep. 180 Tablet 5 4 Active PreviDent 5000 Sensitive 1.1-5 % pste APPLY ON A SOFT BRISSEL TOOTHBRUSH, BRUSH FOR 1 MINUTE, EXPECTORATE (SPIT OUT), THEN RINSE MOUTH THUROUGHLY. DO THIS TWICE A DAY Active pantoprazole (PROTONIX) 40 mg delayed-release tabletIndications: Chronic reflux esophagitis TAKE 1 TABLET (40 MG) BY MOUTH ONCE DAILY. 90 Tablet 3 4 Active tiZANidine (ZANAFLEX) 4 mg tabletIndications: Cervical stenosis of spinal canal Take 1 Tablet (4 mg) by mouth every 8 hours if needed for Muscle Spasm. 60 Tablet 2 4 Active famotidine (PEPCID) 40 mg tabletIndications: Gastroesophageal reflux disease without esophagitis TAKE ONE TABLET(40MG) BY MOUTH ONCE DAILY 90 Tablet 2 4 Active famotidine (PEPCID) 40 mg tabletIndications: Gastroesophageal reflux disease without esophagitis TAKE ONE TABLET(40MG) BY MOUTH ONCE DAILY 90 Tablet 2 3 10/13/19 24 Discontinued Active Problems Problem Noted Date Diagnosed Date Trigger finger of left thumb 01/03/2023 Abdominal bloating 11/30/2022 Pap smear for cervical cancer screening 06/08/19 22 Overview (08/01/2021): 06/2021 NIL/HPV neg. Plan: Pap and HPV in 5 years. Controlled substance agreement signed 12/02/2020 Overview (11/09/2021): Signed 10-29-2021 Kim Beaver MD-[facility] Psychiatry Moderate episode of recurrent major depressive d isorder 07/25/2018 Insomnia, idiopathic 07/25/2018 Pain management contract terminated 10/17/2017 Overview (10/17/2017): Patient pain managed with Suboxone outside of this clinic, does require approval for any other controlled drugs due to being on restricted access program Pain disorder associated wit h psychological and physical factors 10/11/2017 Chronic maxillary sinusitis 10/06/2017 Chronic pain syndrome 03/17/2017 Chronic, continuous use of opioids 03/17/2017 Pain medication agreement 03/01/2016 Overview (10/19/2016): toxasure 02/23 Chronic pain disorder 02/27/2016 Overview (07/19/2016): CSA 07/19/2016 Compliance UA 02/27/2016 Cervical stenosis (uterine cervix) 12/24/2014 Overview (12/24/2014): S/P ACDF C4-C7 Dr. Orozco Neck pain [...] Encounters Date Type Department Care Team Description 10/11/[address] [phone] Ezio Fraga MD Refill Request (Famotidine) 10/03/2023 Medical Messaging [facility] [address] [place] [address] Robby Mayen MD SI joint injection 08/19/2023 Lab Requisition [facility] [phone] Chevy Mejia MD 08/16/[address] [phone] Ezio Fraga MD Refill Request (Pantoprazole) 08/12/2023 1:10 PM CDT Preop Visit [address] [phone] Ezio Fraga MD Preoperative Exam (Surg 08/24/2023 Turbinate resection w/wash; [facility]) 08/12/2023 Travel 08/01/[address] [phone] Ezio Fraga MD Refill Request (Tizanidine) from Last 3 Months Immunizations Name Administration Dates Next Due COVID-19 VACCINE SPIKEVAX (M ODERNA 50MCG/0.5ML) 12YO+ PFS 11/24/2022 COVID-19 vaccine ([facility]-Bio NTech 30mcg/0.3mL) PF, MDV 03/07/2020,02/15/2020 DTaP 03/23/2007 Hepatitis B (Adult) 05/13/2005,11/13/2003 Hepatitis B, Unspecified 05/13/2005,11/13/2003 Human Papilloma Virus Vaccine 04/02/2008, 008 Human Papilloma Virus Vaccin e, Unspecified 04/02/2008,11/27/2007 Influenza Virus, Unspecified 11/19/2014, 11/04/2013,11/18/2008,2008,12/22/2007,11/13/2003,11/13/2002 Influenza, IIV3 (Age >=3 years) 12/01/19 16,11/19/2014,11/04/2013,2012,10/30/2010,11/18/2008,11/13/2003,1 Influenza, IIV4 11/24/2022, 2,11/20/2020,2019,11/23/2018,11/22/2017,01/18/2017,1 ,11/19/2014 Pneumococcal Conj 20-valent (Prevnar 20) 04/26/2022 [...] Team (Late st Contact Info) Description 11/01/2023 10:00 AM CDT Office Visit [facility] at [address] [phone] Robby Mayen MD [address] [place] [address] Arrived 11/10/2023 9:35 AM CDT Office Visit [facility] [address] [place] [address] Varsha Lugo DO [address] [place] [address] 01/09/2024 10:15 AM MATERIAL CLERK Office Visit [facility] [address] [place] [address] Kim Fierro MD [address] [place] [address] Health Maintenance Due Date Last Done Comments COVID-19 vaccine series ( season) 2023 11/24/2022, 01/09/2021, 03/07/2020, Additional history exists Influenza for age 9-49 10/09/2023 , 10/22/2021, 11/20/2020, Additional history exists Depression screening for age 12+ 07/12/2024 07/13/2023, 01/12/2023, 11/08/2022, Additional history exists BMI (ht and wt on same day) for age 18+ 08/11/2024 08/12/2023, 12/10/2022, 04/26/2022, Additional history exists Pap test for age 21-65 06/18/2026 , 06/18/2021, 02/09/2016 Tetanus booster 04/27/2032 04/27/2022, 04/08, 03/23/2007 Pneumococcal series for age 6-64 Completed 04/27/19 23 Tdap Completed 04/27/2022, 03/23/2007 HIV for age 15-65 Completed 04/30/2022 Hepatitis C screening for ag e 18-79 Completed 04/30/2022 Medical Devices Implanted Type Area Link Machine Operator Device Identifier Shelf Expiration Date Model / Serial / Lot Set Screw Cerv Ant 1.8mm Cslp Titnm - [id number] Implanted:Qty: 8 on 12/24/2014 by Toribio Orozco MD at [facility] Spine Implants N/A: Spine J And J Depuy Spine 497.78# / / Cable Lmbr Atlasral Crimp Titnm - [id number] Implanted:Qty: 1 on 06/18/2016 by Toribio Orozco MD at [facility] Spine Implants Spine Medtronic Spine/Ortho 04/12/2024 826-211# / / [id number] Cable Lmbr [place] Path Sgl W/ Integral Crimp Titnm - [id number] Implanted:Qty: 1 on 06/18/2016 by Toribio Orozco MD at [facility] Spine Implants Spine Medtronic Spine/Ortho 08/19/2023 826-213# / / [id number] 1023bone 15x12.5x8mm Mtf Spacer Baltazar/Canclls [[id number]] Implanted:Qty: 1 on 12/24/2014 by Toribio Orozco MD at [facility] Explanted:at [facility] (Quantity not on file) N/A: Spine Musculoskeletal Transplant 10/10/2018 [id number]# / [id number] / [id number] 1024bone 15x12.5x8mm Mtf Spacer Baltazar/Canclls [[id number]] Implanted:Qty: 1 on 12/24/2014 by Toribio Orozco MD at [facility] Explanted:at [facility] (Quantity not on file) N/A: Spine Musculoskeletal Transplant 10/10/2018 [id number]# / [id number] / [id number] 1168bone 15x12.5x8mm Mtf Spacer Baltazar/Canclls [[id number]] Implanted:Qty: 1 on 12/24/2014 by Toribio Orozco MD at [facility] Explanted:at [facility] (Quantity not on file) N/A: Spine Musculoskeletal Transplant 07/19/2018 [id number]# / [id number] / Screw Cerv Ant 4x14mm Cslp Cortical Slf Tpping Expansion Hea - [id number] Implanted:Qty: 8 on 12/24/2014 by Toribio Oroczo MD at [facility] N/A: Spine J And J Depuy Spine 487.044# / / Plate Cerv 3lvl 54mm Cslp Variable Titnm - [id number] Implanted:Qty: 1 on 12/24/2014 by Toribio Orozco MD at [facility] N/A: Spine J And J Depuy Spine 450.174# / / [id number] 1120bone 30cc Mtf Chips Canclls Pouch [[id number]] Implanted:Qty: 1 on 06/18/2016 by Toribio Orozco MD at [facility] Explanted:at [facility] (Quantity not on file) Spine Musculoskeletal Transplant 08/26/2017 523600# / [id number] / Screw Cerv Post 3.5x10mm Synapse Va Canncls Titnm - [id number] Implanted:Qty: 3 on 06/18/2016 at [facility] Spine J And J Depuy Spine 04.614.0 10# / / Set Screw Cerv Synapse - [id number] Implanted:Qty: 3 on 06/18/2016 at [facility] Spine J And J Depuy Spine 04.614.5 08# / / Jc Cerv 50mmx3.5 Synapse Cvd Titnm - [id number] Implanted:Qty: 1 on 06/18/2016 at [facility] Spine J And J Depuy Spine 04.614.7 50# / / Procedures Procedure Name Priority Date/Time Associated Diagnosis Comments LAB TRACKING EVENT Routine 08/19/2023 11 :08 AM CDT PATH TISSUE EXAM Routine 08/19/2023 11:0 6 AM CDT LC HIV-1/O/2, 4TH GENERATION Routine 04/30/2022 11:46 AM CDT Screening for HIV (human immunodeficiency virus) LC HCV ANTIBODY RFX TO QUANT PCR Routine 04/30/2022 11:46 AM CDT Need for hepatitis C screening test MOTOR VEHICLE OPERATOR ROAD SUPERVISOR THIN PREP PAP SCREEN IMAGED Routine 06/18/2021 11:10 AM CDT Pap smear for cervical cancer screening from Last 3 Months or Most Recently Relevant to Health Maintenance Results * LAB TRACKING EVENT (08/19/2023 11:08 AM CDT) Other (Other) Client Collect / Unknown 08/19/2023 11:08 AM CDT 08/19/2023 9:54 PM CDT Chevy Mejia MD LAB BILL ONLY [facility] [address] [place] [address], * PATH TISSUE EXAM (08/19/2023 11:06 AM CDT) Case Report Pathology Report ?Case: [id number] ? Authorizing Provider: ??Chevy Mejia, ??Collected: ? 08/19/2023 1106 ? MD ? Ordering Location: ? [facility] ?Received: ?08/20/2023 0526 ? Pathologist: ? Alina Thomas MD ? Specimens: ?? A) - Left Maxillary Sinus Content ? B) - Right Maxillary Sinus Content ? 08/24/2023 11:31 AM [facility] Final Diagnosis A) SINUS, LEFT MAXILLARY, CURETTINGS: 1. Mild chronic sinusitis 2. Negative for neoplasm 3. Negative for fungal organisms on GMS stained section B) SINUS, RIGHT MAXILLARY, CURETTINGS: 1. Acute and chronic sinusitis 2. Negative for neoplasm 3. Negative for fungal organisms on GMS stained section 08/24/2023 11:31 AM [facility] Clinical Information 43-year-old female with nasal obstruction, turbinate hypertrophy, and chronic maxillary sinusitis. 08/24/2023 11:31 AM [facility] Gross Description A) Received in formalin, labeled with the patient's name and left maxillary sinus contents, is a 0.7 x 0.2 x 0.2 cm aggregate of khoury-pink mucosa admixed with khoury delicate apparent bone. The specimen is entirely submitted in one cassette. B) Received in formalin, labeled with the patient's name and right maxillary sinus contents, is a 0.6 x 0.3 x 0.2 cm aggregate of red-brown tissue. The specimen is entirely submitted in one cassette. DS 08/20/2023 ?? 08/24/2023 11:31 AM [facility] Microscopic Description The final diagnosis is based on microscopic examination of appropriate sections of all specimens. 08/24/2023 11:31 AM [facility] Additional Information Interpreted at [facility] - [address] [facility] [address], [place] [address] 08/24/2023 11:31 AM CDT [facility] Other (Left Maxillary Sinus Content) 08/19/2023 11:06 AM CDT 08/20/2023 5:26 AM CDT Specimen (specimen) (Right Maxillary Sinus Content) 08/19/2023 11:10 AM CDT 08/20/2023 5:26 AM CDT Chevy Mejia MD PATHOLOGY/CYT OLOGY [facility] [address] [place] [address], * LC HCV ANTIBODY RFX TO QUANT PCR (04/30/2022 11:46 AM CDT) HCV Ab Non Reactive Non Reactive 05/04/2022 11:09 AM CDT [facility] ([facility]) Blood BLOOD SPECIMEN / Unknown Venipuncture / Unknown 04/30/2022 11:46 AM CDT 04/30/2022 11:49 AM CDT Narrative [facility] ([facility]) - 05/04/2022 11:09 AM CDT Performed at: ??01 - [address] ??[id number] Agricultural Research Technologist: Derick Phillips MD, Phone: ??[phone] Nickie Hlal MD LABORATORY [facility] ([facility]) [address] [place] [address], * LC HIV-1/O/2, 4TH GENERATION (04/30/2022 11:46 AM CDT) HIV Scr 4th Gen Non Reactive Non Reactive 05/04/2022 9:10 AM CDT [facility] ([facility]) Comment: HIV Negative HIV-1/HIV-2 antibodies and HIV-1 p24 antigen were NOT detected. There is no laboratory evidence of HIV infection. Blood BLOOD SPECIMEN / Unknown Venipuncture / Unknown 04/30/2022 11:46 AM CDT 04/30/2022 11:49 AM CDT Narrative [facility] ([facility]) - 05/04/2022 9:10 AM CDT Performed at: ??01 - [facility] [address] [place], [place] ??[id number] Agricultural Research Technologist: Derick Phillips MD, Phone: ??[phone] Nickie Hall MD LABORATORY [facility] ([facility]) [facility] [place] [address], * MOTOR VEHICLE OPERATOR RO[address] SUPERVISOR THIN PREP PAP SCREEN IMAGED (06/18/2021 11:10 AM CDT) Case Report Gynecologic Cytology Report ? Case: [id number] ? Authorizing Provider: ??Ezio Fraga, ?? Collected: ? 06/18/2021 1110 ? MD ? Ordering Location: ? [facility] ?Received: ?06/18/2021 1239 ? Clinic ? First Screen: ?Rhett Fregoso ? Specimen: ?MOTOR VEHICLE OPERATOR RO[address] SUPERVISOR ThinPrep Vial Screening, Cervical/Vaginal ? 07/02/2021 12:12 PM CDT [facility] INTERPRETATION/ RESULT NEGATIVE FOR INTRAEPITHELIAL LESION OR MALIGNANCY (NIL) (none) 07/02/2021 12:12 PM CDT [facility] IMEN ADEQUACY Satisfactory for evaluation No endocervical component seen 07/02/2021 12:12 PM CDT [facility] EN[facility]AL LABORATORY HPV REQUEST HPV if ASCUS 07/02/2021 12:12 PM CDT [facility] Date of LMP unknown 07/02/2021 12:12 PM CDT [facility] Last Pap Date 02/09/16 07/02/2021 12:12 PM CDT [facility] Last Pap Result NIL 12:12 PM CDT [facility] EN[facility] LAB[facility]ATORY Abnormal Pap or Niangua Bx in last 5 years No 07/02/2021 12:12 PM CDT [facility] EN[facility] LAB[facility]ATORY Menstrual Status Hormonally Suppressed 07/02/2021 12:12 PM CDT [facility] ENTRAL LABORATORY Niangua Bx Done Today No 07/02/2021 12:12 PM CDT [facility] Additional Information None given 07/02/2021 12:12 PM CDT [facility] Comment: Cytology is screened at [facility] - [address], [place] [address] and [facility] - [address], [place] [address] and [facility] - [address] [place] [address] Interpreted at [facility] - [address], [place] [address] Automated Review Successful 07/02/2021 12:12 PM CDT [facility] Comment:Specimen processed s uccessfully by automated sheep herder device, ThinPrep Imaging System, [employer] Note The pap test is a [...] and malignant lesions. 07/02/2021 12:12 PM CDT [facility] Other (Cervical/Vagina l) Non-Blood / Unknown 06/18/2021 11:10 AM CDT 06/18/2021 12:39 PM CDT Ezio Fraga MD PATHOLOGY/CYTO LOGY [facility] [address] [place] [address], [place] from Last 3 Months or Most [...] 11:11 AM 12/24/2014 6:14 PM Care Teams Bobbin Cleaner Relationship Specialty Start Date End Date Ezio Fraga MD [address] [place] [address] PCP - General Family Practice 11/15/22
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
== END 2023-11-01 09:23 | disposition home or self-care (01) ==
LOC: INJ CL 09:23
PROVIDERS: PCP Family Medicine; Visit Provider Family Medicine
DX: M53.3 Sacrococcygeal disorders, not elsewhere classified (principal)
CPT/HCPCS: 27096; J0702; Q9966